=== PATIENT | female | born 1935 | race Caucasian/White ===

== ENCOUNTER 2017-06-29 04:11 | Emergency (ER) | payer MEDICARE ==
[~2017-06-29] VITALS: Ht 162.6 cm; Wt 61.0 kg
[~2017-06-29 04:11] MED LIST: DORZ1SOL2 OU; ESTR2TAB PO; LATA.005%O OU; LISI-360 PO; MAG-500T PO; METH10TA PO
[2017-06-29] MEDS ORDERED: SODIUM CHLOR 0.9% 1000 ML INJ 1,000 ML IV SCH ×2 (04:17→06:00)
[2017-06-29 04:30] VITALS: BP 135/70; PULSE 94; RESP 16; TEMP 97.8; O2SAT 98
[2017-06-29] MEDS ORDERED: SODIUM CHLORIDE 0.9% FLUSH 10 ML FLUSH IV FLUSH PRN (04:30)
[2017-06-29 04:35] VITALS: O2SAT 98
--- NOTE | 2017-06-29 04:45 | PD ---
HPI Chief Complaint: GI Complaint Time Seen by Provider: 04:39 Travel History International Travel<30 days: No Contact w/Intl Traveler<30days: No Traveled to known affect area: No History of Present Illness HPI The patient is an 81-year-old female who has multiple allergies who complains of dizziness, diarrhea since midnight. She is been treated for urinary tract infection and completed her low last dose of urinary antibiotic, amoxicillin, yesterday. The patient does take as needed hydralazine for blood pressure and took 250 mg tablets tonight because of elevated blood pressure. She denies any blood in the stool. She is slightly nauseated. She also has a bifrontal headache of gradual onset tonight. She denies any fever. She denies any cough. Her abdominal pain is sharp and crampy in as a 10 over 10. Her headache is sharp and is a 10 over 10. The patient has fibromyalgia and takes methadone 10 mg in the morning and 20 at night. She has taken this for several years. PFSH Past Medical History Arthritis: Yes Cancer: No Cardiovascular Problems: Yes Diminished Hearing: Yes Endocrine: No Fibromyalgia: Yes Gastrointestinal Disorders: Yes (LOSS OF APPETITE) Glaucoma: Yes Genitourinary: No Hypertension: Yes Immune Disorder: No Musculoskeletal: Yes (ARTHRITIS IN NECK AND BACK) Neurologic: No Psychiatric: No Reproductive: Yes (HYSTERECTOMY) Respiratory: No Menopausal: Yes Past Surgical History Gynecologic Surgery: Yes (HYSTERECTOMY AND BILATERAL OOPHORECTOMY) Other Surgery: Yes Social History Alcohol Use: No Tobacco Use: No (FORMER) Substance Use: No Allergies-Medications (Allergen,Severity, Reaction): Coded Allergies: acetaminophen (Verified Allergy, Severe, GI UPSET, 06/29/17) doxycycline (Verified Allergy, Severe, Hives, 06/29/17) iodine (Verified Allergy, Severe, Edema, 06/29/17) minocycline (Verified Allergy, Severe, Hives, 06/29/17) potassium iodide (Verified Allergy, Severe, Edema, 06/29/17) povidone-iodine (Verified Allergy, Severe, Edema, 06/29/17) sodium iodide (Verified Allergy, Severe, Edema, 06/29/17) sodium iodide (Verified Allergy, Severe, Edema, 06/29/17) tigecycline (Verified Allergy, Severe, Hives, 06/29/17) aspirin (Verified Allergy, Mild, GI UPSET, 06/29/17) pentoxifylline (Verified Allergy, Unknown, 06/29/17) shellfish derived (Verified Allergy, Unknown, Nausea/Vomiting, 06/29/17) HIVES sulfamethoxazole (Verified Allergy, Unknown, 06/29/17) trimethoprim (Verified Allergy, Unknown, 06/29/17) Reported Meds & Prescriptions Reported Meds & Active Scripts Active K-Tab (Potassium Chloride) 20 Meq Tab 20 Meq PO DAILY Zofran Odt (Ondansetron Odt) 4 Mg Tab 4 Mg SL Q6HR PRN Reported Hydralazine HCl 25 Mg Tablet 50 Mg PO TID Calcium 600 with Vitamin D (Calcium Carbonate-Cholecalciferol) 600-400 mg-Unit Tab 1 Tab PO DAILY Fish Oil 1200 mg ([place]-3 Fatty Acids) 360 Mg-1,200 Mg Cap 1,200 Mg PO DAILY Telmisartan 80 Mg Tab 80 Mg PO DAILY Methadone (Methadone HCl) 10 Mg Tab 10 Mg PO TID Latanoprost Opth Drops (Latanoprost) 0.005% Drops 1 Drop EACH EYE HS Refrigerate until opened. Hydrochlorothiazide 25 Mg Tab 25 Mg PO DAILY Dorzolamide-Timolol Opth Drops 22.3-6.8 Mg/Ml Soln 1 Drop EACH EYE BID Biotin 10 Mg Tab 10 Mg PO DAILY Aspirin 81 Mg Chew 81 Mg CHEW DAILY Review of Systems Except as stated in HPI: all other systems reviewed are Neg Physical Exam Narrative GENERAL: The patient is alert, oriented 3 in moderate apparent distress with her abdominal pain and headache. Her vital signs show pulse of 94 but are otherwise normal. SKIN: Focused skin assessment warm/dry. HEAD: Atraumatic. Normocephalic. EYES: Pupils equal and round. No scleral icterus. No injection or drainage. ENT: No nasal bleeding or discharge. Mucous membranes pink and moist. NECK: Trachea midline. No JVD. There is no meningismus present. CARDIOVASCULAR: Regular rate and rhythm. No murmur appreciated. RESPIRATORY: No accessory muscle use. Clear to auscultation. Breath sounds equal bilaterally. GASTROINTESTINAL: Abdomen soft, with tenderness to direct palpation of the midline epigastrium, nondistended. Hepatic and splenic margins not palpable. No guarding or rebound is present. MUSCULOSKELETAL: No obvious deformities. No clubbing. No cyanosis. No edema. NEUROLOGICAL: Awake and alert. No obvious cranial nerve deficits. Motor grossly within normal limits. Normal speech. PSYCHIATRIC: Appropriate mood and affect; insight and judgment normal. Data Data Last Documented VS Vital Signs Date Time Temp Pulse Resp B/P (MAP) Pulse Ox O2 Delivery O2 Flow Rate FiO2 06/29/17 05:45 98 18 119/62 (81) 98 Room Air 06/29/17 04:30 97.8 Orders Orders Complete Blood Count With Diff (06/29/17 04:17) Comprehensive Metabolic Panel (06/29/17 04:17) Lipase (06/29/17 04:17) Urinalysis - C+S If Indicated (06/29/17 04:17) Iv Access Insert/Monitor (06/29/17 04:17) Ecg Monitoring (06/29/17 04:17) Oximetry (06/29/17 04:17) Sodium Chlor 0.9% 1000 Ml Inj (Ns 1000 M (06/29/17 04:17) Sodium Chloride 0.9% Flush (Ns Flush) (06/29/17 04:30) Ct Brain W/O Iv Contrast(Rout) (06/29/17 04:45) Magnesium (Mg) (06/29/17 04:17) Ct Abd/Pel W/O Iv Contrast (06/29/17 04:55) Potassium Chloride (Kcl) (06/29/17 05:30) Sodium Chlor 0.9% 1000 Ml Inj (Ns 1000 M (06/29/17 06:00) Ondansetron Inj (Zofran Inj) (06/29/17 06:15) Dicyclomine Inj (Bentyl Inj) (06/29/17 06:30) C Diff Toxin Pcr (06/29/17 06:19) Enteric Path (Stool) (06/29/17 06:19) Labs Laboratory Tests Test 06/29/17 04:45 06/29/17 05:50 White Blood Count 8.8 TH/MM3 Red Blood Count 4.04 MIL/MM3 Hemoglobin 11.6 GM/DL Hematocrit 36.0 % Mean Corpuscular Volume 89.2 FL Mean Corpuscular Hemoglobin 28.8 PG Mean Corpuscular Hemoglobin Concent 32.3 % Red Cell Distribution Width 12.7 % Platelet Count 299 TH/MM3 Mean Platelet Volume 7.4 FL Neutrophils (%) (Auto) 72.6 % Lymphocytes (%) (Auto) 15.1 % Monocytes (%) (Auto) 8.2 % Eosinophils (%) (Auto) 3.3 % Basophils (%) (Auto) 0.8 % Neutrophils # (Auto) 6.4 TH/MM3 Lymphocytes # (Auto) 1.3 TH/MM3 Monocytes # (Auto) 0.7 TH/MM3 Eosinophils # (Auto) 0.3 TH/MM3 Basophils # (Auto) 0.1 TH/MM3 CBC Comment DIFF FINAL Differential Comment Blood Urea Nitrogen 13 MG/DL Creatinine 0.79 MG/DL Random Glucose 127 MG/DL Total Protein 7.2 GM/DL Albumin 3.5 GM/DL Calcium Level 9.2 MG/DL Magnesium Level 1.8 MG/DL Alkaline Phosphatase 54 U/L Aspartate Amino Transf (AST/SGOT) 23 U/L Alanine Aminotransferase (ALT/SGPT) 15 U/L Total Bilirubin 0.4 MG/DL Sodium Level 132 MEQ/L Potassium Level 3.0 MEQ/L Chloride Level 96 MEQ/L Carbon Dioxide Level 30.7 MEQ/L Anion Gap 5 MEQ/L Estimat Glomerular Filtration Rate 70 ML/MIN Lipase 213 U/L Urine Color YELLOW Urine Turbidity CLOUDY Urine pH 8.5 Urine Specific [place] 1.009 Urine Protein NEG mg/dL Urine Glucose (UA) NEG mg/dL Urine Ketones NEG mg/dL Urine Occult Blood NEG Urine Nitrite NEG Urine Bilirubin NEG Urine Leukocyte Esterase NEG Urine RBC 0-2 /hpf Urine WBC 3-5 /hpf Urine Squamous Epithelial Cells > 8 /hpf Urine Amorphous Sediment LARGE Urine Bacteria NONE /hpf Microscopic Urinalysis Comment CULT NOT INDICATED MDM Medical Decision Making Medical Screen Exam Complete: Yes Emergency Medical Condition: Yes Medical Record Reviewed: Yes Differential Diagnosis Ischemic bowel, cholecystitis, colitis, pyelonephritis, gastritis, dehydration, electrolyte disorder, pancreatitis, clostridium difficile, abdominal pain etiology undetermined Narrative Course At approximately 0620 the patient had a fairly well-formed stool. She still feels slightly nauseated. Physician Communication Physician Communication Discussed the patient with Dr. Avel arndt, he felt that we did not have enough to justify admission. Diagnosis Primary Impression: Abdominal pain of unknown etiology Additional Instructions: As we discussed, follow-up with Dr. Justice aLl on Saturday if possible for reevaluation. Zofran is every 6 hours 1 tablet as needed for nausea. Make sure that you've increase your liquid intake to stay well-hydrated. Med/Other Pt SpecificInfo: Prescription(s) given Scripts Potassium Chloride ER (K-Tab) 20 Meq Tab 20 MEQ PO DAILY for Electrolyte Replacement, #30 TAB 0 Refills Prov: Elvin Darling MD 06/29/17 Ondansetron Odt (Zofran Odt) 4 Mg Tab 4 MG SL Q6HR Y for Nausea/Vomiting, #30 TAB 0 Refills Prov: Elvin Darling MD 06/29/17 Disposition: 01 DISCHARGE HOME Condition: Stable Elvin Darling MD Jun 29, 2017 04:45
[2017-06-29] MEDS ORDERED: TELM1TAB2 PO (04:54)
[2017-06-29] MEDS ORDERED: BIOT10TA PO (04:54)
[2017-06-29] MEDS ORDERED: METH10TA PO (04:54)
[2017-06-29] MEDS ORDERED: LATA0.002 EACH EYE (04:54)
[2017-06-29] MEDS ORDERED: CALC1TAB87 PO (04:54)
[2017-06-29] MEDS ORDERED: DORZ2SOL15 EACH EYE (04:54)
[2017-06-29] MEDS ORDERED: HYDR25TA5 PO (04:54)
[2017-06-29] MEDS ORDERED: ASPI-516 CHEW (04:54)
[2017-06-29] MEDS ORDERED: FISH1200 PO (04:54)
[2017-06-29] MEDS ORDERED: HYDR-3799 PO (04:54)
[2017-06-29 04:56] LABS: AUTOMATED NEUTROPHIL # 6.4 TH/MM3 (1.8-7.7); BASOPHIL # 0.1 TH/MM3 (0-0.2); BASOPHIL % 0.8 % (0.0-2.0); EOSINOPHIL # 0.3 TH/MM3 (0-0.4); EOSINOPHIL % 3.3 % (0.0-4.0); HEMOGLOBIN 11.6 GM/DL (11.6-15.3); LYMPH % 15.1 % (9.0-44.0); LYMPHOCYTE # 1.3 TH/MM3 (1.0-4.8); MEAN CELL VOLUME 89.2 FL (80.0-100.0); MEAN CORPUSCULAR HEMOGLOBIN 28.8 PG (27.0-34.0); MEAN CORPUSCULAR HGB CONC 32.3 % (32.0-36.0); MEAN PLATELET VOLUME 7.4 FL (7.0-11.0); MONO % 8.2 % (0.0-8.0); MONOCYTE # 0.7 TH/MM3 (0-0.9); NEUT % 72.6 % (16.0-70.0); PLATELET COUNT 299 TH/MM3 (150-450); RED BLOOD COUNT 4.04 MIL/MM3 (4.00-5.30); RED CELL DISTRIBUTION WIDTH 12.7 % (11.6-17.2); WHITE BLOOD COUNT 8.8 TH/MM3 (4.0-11.0)
[2017-06-29 05:03] LABS: CHLORIDE 96 MEQ/L (98-107); SODIUM (NA) 132 MEQ/L (136-145)
[2017-06-29 05:07] LABS: ALBUMIN 3.5 GM/DL (3.4-5.0); BICARBONATE 30.7 MEQ/L (21.0-32.0); BLOOD UREA NITROGEN 13 MG/DL (7-18); CALCIUM 9.2 MG/DL (8.5-10.1); GLUCOSE,RANDOM 127 MG/DL (74-106); MAGNESIUM 1.8 MG/DL (1.5-2.5)
[2017-06-29 05:10] LABS: ALT (GPT) 15 U/L (10-53); AST (GOT) 23 U/L (15-37); CREATININE 0.79 MG/DL (0.50-1.00); GLOMERULAR FILTRATION RATE 70 ML/MIN (>89)
[2017-06-29 05:12] LABS: TOTAL BILIRUBIN ADULT 0.4 MG/DL (0.2-1.0); TOTAL PROTEIN 7.2 GM/DL (6.4-8.2)
[2017-06-29 05:13] LABS: ALKALINE PHOSPHATASE 54 U/L (45-117)
[2017-06-29] MEDS ORDERED: POTASSIUM CHLORIDE 20 MEQ CONTROLLED RELEASE TAB PO ONE (05:30)
--- NOTE | 2017-06-29 05:41 | RADRPT ---
EXAM DATE/TIME: 06/29/2017 05:04 [facility] COMPARISON: CT BRAIN W/O CONTRAST, September 09, 2013, 14:07. INDICATIONS : Cephalgia, dizziness. RADIATION DOSE: 61.51 CTDIvol (mGy) MEDICAL HISTORY : Hypertension. Fibromyalgia. SURGICAL HISTORY : Abdominal aortic aneurysm repair. ENCOUNTER: Initial ACUITY: 1 day PAIN SCALE: 10/10 LOCATION: cranial TECHNIQUE: Multiple contiguous axial images were obtained of the head. Using automated exposure control and adj ustment of the mA and/or kV according to patient size, radiation dose was kept as low as reasonably a chievable to obtain optimal diagnostic quality images. DICOM format image data is available electro nically for review and comparison. FINDINGS: CEREBRUM: The ventricles are normal for age. No evidence of midline shift, mass lesion, hemorrhage or acute in farction. No extra-axial fluid collections are seen. POSTERIOR FOSSA: The cerebellum and brainstem are intact. The 4th ventricle is midline. The cerebellopontine angle i s unremarkable. EXTRACRANIAL: The visualized portion of the orbits is intact. SKULL: The calvaria is intact. No evidence of skull fracture. CONCLUSION: 1. No acute intracranial abnormalities. Johnnie Siddiqi MD on June 29, 2017 at 5:38 Board Certified Radiologist. This report was verified electronically.
--- NOTE | 2017-06-29 05:44 | RADRPT ---
EXAM DATE/TIME: 06/29/2017 05:07 [facility] COMPARISON: No previous studies available for comparison. INDICATIONS : Abdominal pain with diarrhea. ORAL CONTRAST: No oral contrast ingested. RADIATION DOSE: 8.53 CTDIvol (mGy) MEDICAL HISTORY : Hypertension. Fibromyalgia. SURGICAL HISTORY : Hysterectomy. Abdominal aortic aneurysm repair. ENCOUNTER: Initial ACUITY: 1 day PAIN SCALE: 10/10 LOCATION: Abdomen. TECHNIQUE: Volumetric scanning of the abdomen and pelvis was performed. Using automated exposure control and ad justment of the mA and/or kV according to patient size, radiation dose was kept as low as reasonably achievable to obtain optimal diagnostic quality images. DICOM format image data is available electro nically for review and comparison. FINDINGS: Lung bases demonstrate minimal linear atelectasis or scarring. No acute findings in the liver, spleen , adrenals, kidneys or pancreas. No calcified gallstones. Previous graft placement distal abdominal a anamaria and proximal iliac arteries. Colonic diverticulosis without diverticulitis. No obstruction, free fluid or free air. CONCLUSION: 1. No acute findings. Specifically no obstruction or free air. 2. Colonic diverticulosis without diverticulitis. 3. Stent graft distal aorta and common iliac arteries. Johnnie Siddiqi MD on June 29, 2017 at 5:40 Board Certified Radiologist. This report was verified electronically.
[2017-06-29 05:45] VITALS: BP 119/62; PULSE 98; RESP 18; O2SAT 98
[2017-06-29 05:56] LABS: BILIRUBIN, URINE NEG (NEG); BLOOD, URINE NEG (NEG); GLUCOSE,URINE NEG (NEG); KETONE, URINE NEG (NEG); NITRITE,URINE NEG (NEG); PH, URINE 8.5 (5.0-8.5); URINE LEUKOCYTE ESTERASE NEG (NEG)
[2017-06-29 05:57] LABS: URINE COLOR YELLOW (YELLW/STRAW)
[2017-06-29 06:00] LABS: AMORPHOUS SEDIMENT, URINE LARGE; RBC, URINE 0-2 /hpf (0-3); SQUAMOUS EPITHELIAL CELL URINE > 8 /hpf (0-5)
[2017-06-29] MEDS ORDERED: ONDANSETRON HCL 4 MG/2 ML VIAL IV ONE (06:15)
[2017-06-29] MEDS ORDERED: ZOFR4TAB3 SL (06:22)
[2017-06-29] MEDS ORDERED: POTA1TAB4 PO (06:23)
[2017-06-29] MEDS ORDERED: DICYCLOMINE HCL 20 MG/2 ML VIAL IM ONE (06:30)
== END 2017-06-29 07:07 | disposition home or self-care (01) ==
LOC: PHED 04:11
DX: R10.9 Unspecified abdominal pain (principal); M79.7 Fibromyalgia; I10 Essential (primary) hypertension; Z88.8 Allergy status to other drugs, medicaments and biological substances; Z88.2 Allergy status to sulfonamides; Z88.6 Allergy status to analgesic agent; Z91.013 Allergy to seafood
CPT/HCPCS: 70450; 74176; 80053; 81001; 83690; 83735; 85025; 87493; 87506; 96361; 96374; 99284; J2405; J7030

== ENCOUNTER 2017-07-01 02:59 | Emergency (ER) | payer MEDICARE ==
[~2017-07-01] VITALS: Ht 162.6 cm; Wt 57.3 kg
[~2017-07-01 02:59] MED LIST changes: +ASPI-516 CHEW; +BIOT10TA PO; +CALC1TAB87 PO; -DORZ1SOL2 OU; +DORZ2SOL15 EACH EYE; -ESTR2TAB PO; +FISH1200 PO; +HYDR-3799 PO; +HYDR25TA5 PO; -LATA.005%O OU; +LATA0.002 EACH EYE; -LISI-360 PO; -MAG-500T PO; +POTA1TAB4 PO; +TELM1TAB2 PO; +ZOFR4TAB3 SL
[2017-07-01 03:01] VITALS: BP 146/70; PULSE 106; RESP 16; TEMP 97.5; O2SAT 96
[2017-07-01 03:42] VITALS: BP 129/72; PULSE 91; RESP 18; O2SAT 95
[2017-07-01] MEDS ORDERED: SODIUM CHLORIDE 0.9% FLUSH 10 ML FLUSH IV FLUSH PRN (04:15)
[2017-07-01] MEDS ORDERED: MORPHINE SULFATE 2 MG/ML INJ IV PUSH ONE (04:15)
[2017-07-01] MEDS ORDERED: ONDANSETRON HCL 4 MG/2 ML VIAL IVP ONE (04:15)
[2017-07-01] MEDS ORDERED: SODIUM CHLORID 0.9% 500 ML INJ 500 ML IV ONE (04:15)
[2017-07-01 04:30] LABS: BASOPHIL % 0.8 % (0.0-2.0); EOSINOPHIL # 0.1 TH/MM3 (0-0.4); EOSINOPHIL % 2.4 % (0.0-4.0); HEMATOCRIT 32.2 % (35.0-46.0); LYMPH % 24.8 % (9.0-44.0); LYMPHOCYTE # 1.5 TH/MM3 (1.0-4.8); MEAN CELL VOLUME 89.1 FL (80.0-100.0); MEAN CORPUSCULAR HEMOGLOBIN 30.5 PG (27.0-34.0); MEAN CORPUSCULAR HGB CONC 34.2 % (32.0-36.0); MEAN PLATELET VOLUME 7.9 FL (7.0-11.0); MONO % 8.5 % (0.0-8.0); MONOCYTE # 0.5 TH/MM3 (0-0.9); NEUT % 63.5 % (16.0-70.0); PLATELET COUNT 256 TH/MM3 (150-450); RED BLOOD COUNT 3.61 MIL/MM3 (4.00-5.30); RED CELL DISTRIBUTION WIDTH 13.1 % (11.6-17.2); WHITE BLOOD COUNT 6.1 TH/MM3 (4.0-11.0)
[2017-07-01 04:31] LABS: BILIRUBIN, URINE NEG (NEG); BLOOD, URINE NEG (NEG); GLUCOSE,URINE NEG (NEG); KETONE, URINE NEG (NEG); NITRITE,URINE NEG (NEG); URINE LEUKOCYTE ESTERASE NEG (NEG)
--- NOTE | 2017-07-01 04:33 | RADRPT ---
EXAM DATE/TIME: 07/01/2017 04:12 [place] Corrected on: July 01, 2017; [facility] COMPARISON: No previous studies available for comparison. INDICATIONS : Abdominal pain. MEDICAL HISTORY : Hypertension. SURGICAL HISTORY : Abdominal aortic aneurysm repair. Hysterectomy. ENCOUNTER: Initial ACUITY: 1 day PAIN SCORE: 5/10 LOCATION: abdomen, all quadrants. FINDINGS: Supine and upright views of the abdomen were performed. The abdominal bowel gas pattern is normal. No air fluid levels are seen. No abnormal masses, calcifications, or organomegaly is seen. The visu alized lower lungs are clear. No evidence of free intraperitoneal gas. The osseous structures are u nremarkable. CONCLUSION: Nonobstructive bowel gas pattern. Chapin Mccartney MD on July 01, 2017 at 4:30 Board Certified Radiologist. This report was verified electronically. Chapin Mccartney MD on July 01, 2017 at 5:14 Board Certified Radiologist. This report was verified electronically.
[2017-07-01 04:35] LABS: CHLORIDE 97 MEQ/L (98-107); SODIUM (NA) 134 MEQ/L (136-145)
--- NOTE | 2017-07-01 04:35 | RADRPT ---
EXAM DATE/TIME: 07/01/2017 04:21 [facility] COMPARISON: CT BRAIN W/O CONTRAST, June 29, 2017, 5:04. INDICATIONS : Cephalgia. Left side weakness. RADIATION DOSE: 59.45 CTDIvol (mGy) MEDICAL HISTORY : Hypertension. SURGICAL HISTORY : None. ENCOUNTER: Initial ACUITY: 2 days PAIN SCALE: 10/10 LOCATION: cranial TECHNIQUE: Multiple contiguous axial images were obtained of the head. Using automated exposure control and adj ustment of the mA and/or kV according to patient size, radiation dose was kept as low as reasonably a chievable to obtain optimal diagnostic quality images. DICOM format image data is available electro nically for review and comparison. FINDINGS: There is mild volume loss with no signs of acute infarct, hemorrhage or mass. Osseous structures are intact. CONCLUSION: No significant change has occurred. Chapin Mccartney MD on July 01, 2017 at 4:32 Board Certified Radiologist. This report was verified electronically.
[2017-07-01 04:38] LABS: ALBUMIN 3.4 GM/DL (3.4-5.0); BICARBONATE 28.8 MEQ/L (21.0-32.0); CALCIUM 9.2 MG/DL (8.5-10.1); GLUCOSE,RANDOM 124 MG/DL (74-106)
[2017-07-01 04:39] LABS: URINE COLOR YELLOW (YELLW/STRAW)
[2017-07-01 04:39] LABS: BLOOD UREA NITROGEN 9 MG/DL (7-18)
[2017-07-01 04:41] LABS: MUCUS URINE OCC /lpf (OCC); SQUAMOUS EPITHELIAL CELL URINE 0-5 /hpf (0-5)
[2017-07-01 04:41] LABS: ALT (GPT) 16 U/L (10-53); AST (GOT) 25 U/L (15-37); CREATININE 0.71 MG/DL (0.50-1.00); GLOMERULAR FILTRATION RATE 79 ML/MIN (>89)
[2017-07-01 04:43] LABS: RBC, URINE 0-3 /hpf (0-3)
[2017-07-01 04:43] LABS: TOTAL BILIRUBIN ADULT 0.4 MG/DL (0.2-1.0); TOTAL PROTEIN 6.9 GM/DL (6.4-8.2)
[2017-07-01 04:44] LABS: ALKALINE PHOSPHATASE 47 U/L (45-117)
--- NOTE | 2017-07-01 04:52 | PD ---
HPI Chief Complaint: Numbness/Tingling Time Seen by Provider: 04:05 Travel History International Travel<30 days: No Contact w/Intl Traveler<30days: No Traveled to known affect area: No History of Present Illness HPI 81-year-old female presents to the emergency department by private transportation for evaluation of abdominal pain and head pain generalized weakness and hand tingling. Patient has not felt well for several days was recently seen in the emergency department and diagnosed with C. difficile colitis and prescribed oral antibiotic. Patient did not have antibiotic filled as the pharmacy that they typically go to was closed in the [facility] pharmacy coloscopy medication was too expensive. Patient yesterday felt well but went to bed and upon awakening again felt poorly and decided to come to the emergency room for further evaluation. No fever no chills reports that diarrhea has resolved. No dysuria frequency urgency or flank pain. Patient rates abdominal pain is moderate to severe and headache is moderate to severe. Patient's had no visual disturbance no change in speech no confusion or balance disturbance no upper or lower cavity weakness and no arm leg numbness tingling or weakness and previous tingling sensation in her hands has resolved. No recent neck injury or fall. Patient has not yet started new medication and has not had additional new medication for adverse reaction symptoms. Past history is significant for hypertension chronic pain syndrome fibromyalgia previous aortic stent graft placement. [facility] Past Medical History Narrative Medical Stent graft distal aorta fibromyalgia glaucoma arthritis hypertension hysterectomy no tobacco use; nursing notes reviewed Hx Anticoagulant Therapy: Yes Arthritis: Yes Cancer: No Cardiovascular Problems: Yes Diminished Hearing: Yes Endocrine: No Fibromyalgia: Yes Gastrointestinal Disorders: Yes (LOSS OF APPETITE) Glaucoma: Yes Genitourinary: No Hypertension: Yes Immune Disorder: No Musculoskeletal: Yes (ARTHRITIS IN NECK AND BACK) Neurologic: No Psychiatric: No Reproductive: Yes (HYSTERECTOMY) Respiratory: No ?: Not Menopausal: Yes Past Surgical History Gynecologic Surgery: Yes (HYSTERECTOMY AND BILATERAL OOPHORECTOMY) Hysterectomy: Yes Other Surgery: Yes Social History Alcohol Use: No Tobacco Use: No (FORMER) Substance Use: No Allergies-Medications (Allergen,Severity, Reaction): Coded Allergies: acetaminophen (Verified Allergy, Severe, GI UPSET, 07/01/17) doxycycline (Verified Allergy, Severe, Hives, 07/01/17) iodine (Verified Allergy, Severe, Edema, 07/01/17) minocycline (Verified Allergy, Severe, Hives, 07/01/17) potassium iodide (Verified Allergy, Severe, Edema, 07/01/17) povidone-iodine (Verified Allergy, Severe, Edema, 07/01/17) sodium iodide (Verified Allergy, Severe, Edema, 07/01/17) sodium iodide (Verified Allergy, Severe, Edema, 07/01/17) tigecycline (Verified Allergy, Severe, Hives, 07/01/17) aspirin (Verified Allergy, Mild, GI UPSET, 07/01/17) pentoxifylline (Verified Allergy, Unknown, 07/01/17) shellfish derived (Verified Allergy, Unknown, Nausea/Vomiting, 07/01/17) HIVES sulfamethoxazole (Verified Allergy, Unknown, 07/01/17) trimethoprim (Verified Allergy, Unknown, 07/01/17) Reported Meds & Prescriptions Reported Meds & Active Scripts Active K-Tab (Potassium Chloride) 20 Meq Tab 20 Meq PO DAILY Zofran Odt (Ondansetron Odt) 4 Mg Tab 4 Mg SL Q6HR PRN Reported Hydralazine HCl 25 Mg Tablet 50 Mg PO TID Calcium 600 with Vitamin D (Calcium Carbonate-Cholecalciferol) 600-400 mg-Unit Tab 1 Tab PO DAILY Fish Oil 1200 mg ([place]-3 Fatty Acids) 360 Mg-1,200 Mg Cap 1,200 Mg PO DAILY Telmisartan 80 Mg Tab 80 Mg PO DAILY Methadone (Methadone HCl) 10 Mg Tab 10 Mg PO TID Latanoprost Opth Drops (Latanoprost) 0.005% Drops 1 Drop EACH EYE HS Refrigerate until opened. Hydrochlorothiazide 25 Mg Tab 25 Mg PO DAILY Dorzolamide-Timolol Opth Drops 22.3-6.8 Mg/Ml Soln 1 Drop EACH EYE BID Biotin 10 Mg Tab 10 Mg PO DAILY Aspirin 81 Mg Chew 81 Mg CHEW DAILY Review of Systems Except as stated in HPI: all other systems reviewed are Neg General / Constitutional: No: Fever, Chills HENT: No: Congestion Cardiovascular: No: Chest Pain or Discomfort Respiratory: No: Shortness of Breath Gastrointestinal: Positive: Nausea, Abdominal Pain, No: Diarrhea Genitourinary: No: Dysuria, Flank Pain Musculoskeletal: No: Myalgias, Arthralgias Skin: No Rash Neurologic: Positive: Weakness, Paresthesia (Generalized transient hand), No: Dizziness, Syncope, Focal Abnormalities, Coordination Problem Psychiatric: Positive: Anxiety Hematologic/Lymphatic: No: Lymph Node Enlargement Physical Exam Narrative GENERAL: Well-developed well-nourished female in no acute distress or respiratory distress; GCS 15 SKIN: Warm and dry. HEAD: Atraumatic. Normocephalic. EYES: Pupils equal and round. No scleral icterus. No injection or drainage. ENT: No nasal bleeding or discharge. Mucous membranes pink and moist. NECK: Trachea midline. No JVD. CARDIOVASCULAR: Regular rate and rhythm. RESPIRATORY: No accessory muscle use. Clear to auscultation. Breath sounds equal bilaterally. GASTROINTESTINAL: Abdomen soft, non-tender, nondistended. Hepatic and splenic margins not palpable. MUSCULOSKELETAL: Extremities without clubbing, cyanosis, or edema. No obvious deformities. NEUROLOGICAL: Awake and alert. No obvious cranial nerve deficits. Motor grossly within normal limits. Five out of 5 muscle strength in the arms and legs. No limb ataxia. No pronator drift. Sensory exam intact. DTRs 2+ and equal bilaterally. Normal speech. PSYCHIATRIC: Appropriate mood and affect; insight and judgment normal. Data Data Last Documented VS Vital Signs Date Time Temp Pulse Resp B/P (MAP) Pulse Ox O2 Delivery O2 Flow Rate FiO2 07/01/17 03:42 91 18 129/72 (91) 95 Room Air 07/01/17 03:01 97.5 Orders Orders Complete Blood Count With Diff (07/01/17 04:05) Comprehensive Metabolic Panel (07/01/17 04:05) Lipase (07/01/17 04:05) Lactic Acid (07/01/17 04:05) Urinalysis - C+S If Indicated (07/01/17 04:05) Abdomen, Flat & Upright (07/01/17 ) Iv Access Insert/Monitor (07/01/17 04:05) Ecg Monitoring (07/01/17 04:05) Oximetry (07/01/17 04:05) Ondansetron Inj (Zofran Inj) (07/01/17 04:15) Sodium Chloride 0.9% Flush (Ns Flush) (07/01/17 04:15) Electrocardiogram (07/01/17 04:05) Morphine Inj (Morphine Inj) (07/01/17 04:15) Sodium Chlorid 0.9% 500 Ml Inj (Ns 500 M (07/01/17 04:15) Ct Brain W/O Iv Contrast(Rout) (07/01/17 ) Potassium Chloride (Kcl) (07/01/17 05:00) Ed Discharge Order (07/01/17 05:41) Labs Laboratory Tests Test 07/01/17 03:55 07/01/17 04:05 White Blood Count 6.1 TH/MM3 Red Blood Count 3.61 MIL/MM3 Hemoglobin 11.0 GM/DL Hematocrit 32.2 % Mean Corpuscular Volume 89.1 FL Mean Corpuscular Hemoglobin 30.5 PG Mean Corpuscular Hemoglobin Concent 34.2 % Red Cell Distribution Width 13.1 % Platelet Count 256 TH/MM3 Mean Platelet Volume 7.9 FL Neutrophils (%) (Auto) 63.5 % Lymphocytes (%) (Auto) 24.8 % Monocytes (%) (Auto) 8.5 % Eosinophils (%) (Auto) 2.4 % Basophils (%) (Auto) 0.8 % Neutrophils # (Auto) 4.0 TH/MM3 Lymphocytes # (Auto) 1.5 TH/MM3 Monocytes # (Auto) 0.5 TH/MM3 Eosinophils # (Auto) 0.1 TH/MM3 Basophils # (Auto) 0.0 TH/MM3 CBC Comment DIFF FINAL Differential Comment Blood Urea Nitrogen 9 MG/DL Creatinine 0.71 MG/DL Random Glucose 124 MG/DL Total Protein 6.9 GM/DL Albumin 3.4 GM/DL Calcium Level 9.2 MG/DL Alkaline Phosphatase 47 U/L Aspartate Amino Transf (AST/SGOT) 25 U/L Alanine Aminotransferase (ALT/SGPT) 16 U/L Total Bilirubin 0.4 MG/DL Sodium Level 134 MEQ/L Potassium Level 3.0 MEQ/L Chloride Level 97 MEQ/L Carbon Dioxide Level 28.8 MEQ/L Anion Gap 8 MEQ/L Estimat Glomerular Filtration Rate 79 ML/MIN Lactic Acid Level 0.9 mmol/L Lipase 153 U/L Urine Color YELLOW Urine Turbidity CLEAR Urine pH 8.0 Urine Specific [place] 1.007 Urine Protein NEG mg/dL Urine Glucose (UA) NEG mg/dL Urine Ketones NEG mg/dL Urine Occult Blood NEG Urine Nitrite NEG Urine Bilirubin NEG Urine Leukocyte Esterase NEG Urine RBC 0-3 /hpf Urine Squamous Epithelial Cells 0-5 /hpf Urine Mucus OCC /lpf Microscopic Urinalysis Comment CULT NOT INDICATED MDM Medical Decision Making Medical Screen Exam Complete: Yes Emergency Medical Condition: Yes Medical Record Reviewed: Yes Interpretation(s) Normal sinus rhythm rate 82 left ventricular conduction delay no acute ST elevation or injury pattern CBC & BMP Diagram 07/01/17 03:55 Total Protein 6.9, Albumin 3.4, Calcium Level 9.2, Alkaline Phosphatase 47, Aspartate Amino Transf (AST/SGOT) 25, Alanine Aminotransferase (ALT/SGPT) 16, Total Bilirubin 0.4 Vital Signs Date Time Temp Pulse Resp B/P (MAP) Pulse Ox O2 Delivery O2 Flow Rate FiO2 07/01/17 03:42 91 18 129/72 (91) 95 Room Air 07/01/17 03:12 93 07/01/17 03:01 97.5 106 16 146/70 (95) [address] 07/01/17 0000 Signed Impressions: Service Date/Time: Saturday, July 01, 2017 04:21 - CONCLUSION: No significant change has occurred. Chapin Mccartney MD Abdomen X-Ray 07/01/17 0000 Signed Impressions: Service Date/Time: Saturday, July 01, 2017 04:12 - CONCLUSION: Nonobstructive bowel gas pattern. Chapin Mccartney MD Differential Diagnosis Generalized weakness, sepsis, toxic megacolon, UTI, adverse medication reaction , hyperventilation, TIA, CVA, ACS Narrative Course IV access obtained specimens collected and sent for resulting imaging studies ordered CBC with automated differential values are grossly within normal range metabolic panel is remarkable for hypokalemia otherwise values are grossly within normal range and urinalysis is normal EKG shows no acute injury pattern change CT brain noncontrast reveals no acute process and abdominal flat and upright film revealed no air-fluid levels or obstructive pattern and no subdiaphragmatic free air Patient given Zofran and 2 mg of morphine for complaint of abdominal pain. Patient resting comfortably has received oral potassium replacement as above 03/06 yesterday was given prescription for daily potassium supplementation. Patient is to follow-up with her primary care provider. Patient is to have her antibiotic prescription filled through her pharmacy and start her antibiotic therapy for recent diagnosis of C. difficile as provided by previous managing/ prescribed physician Dr. Darling. Diagnosis Primary Impression: Weakness generalized Additional Impressions: Hypokalemia Abdominal pain Referrals: Primary Care Physician call for appointment Patient Instructions: General Instructions Additional Instructions: Continue current medications as presently prescribed and begin your antibiotic as previously directed Take potassium replacement as prescribed Add potassium containing foods and beverages to dietary intake Return to the emergency department for any concerns or change in condition Follow up with your primary care provider Med/Other Pt SpecificInfo: No Change to Meds Disposition: 01 DISCHARGE HOME Condition: Stable Cassidy Rivera MD Jul 01, 2017 04:52
[2017-07-01] MEDS ORDERED: POTASSIUM CHLORIDE 20 MEQ CONTROLLED RELEASE TAB PO ONE (05:00)
[2017-07-01 06:11] VITALS: BP 118/62
--- NOTE | 2017-07-01 11:00 | EKG ---
Date Performed: 07/01/2017 Time Performed: 04:44:46 PTAGE: 81 years EKG: Sinus rhythm POSSIBLE LEFT ATRIAL ENLARGEMENT POSSIBLE RIGHT VENTRICULAR CONDUCTION DELAY BORDERLINE ECG Compared to PREVIOUS TRACING PREVIOUS TRACIN01/06/2015 07.23 DOCTOR: Serafin Stewart Interpretating Date/Time 07/01/2017 10:58:38
== END 2017-07-01 06:12 | disposition home or self-care (01) ==
LOC: PHED 02:59
DX: R53.1 Weakness (principal); E87.6 Hypokalemia; R10.9 Unspecified abdominal pain; R51 Headache; R94.31 Abnormal electrocardiogram [ECG] [EKG]; I10 Essential (primary) hypertension; G89.4 Chronic pain syndrome; M79.7 Fibromyalgia; H40.9 Unspecified glaucoma; H91.90 Unspecified hearing loss, unspecified ear; Z79.82 Long term (current) use of aspirin; Z87.39 Personal history of other diseases of the musculoskeletal system and connective tissue; Z87.19 Personal history of other diseases of the digestive system
CPT/HCPCS: 70450; 74019; 80053; 81001; 83605; 83690; 85025; 93005; 96361; 96374; 96375; 99285; J2270; J2405; J7040

== ENCOUNTER 2017-07-05 07:50 | Emergency (ER) | payer MEDICARE ==
[~2017-07-05] VITALS: Ht 162.6 cm; Wt 56.3 kg
[2017-07-05 07:56] VITALS: BP 149/68; PULSE 87; RESP 16; TEMP 98.6; O2SAT 97
[2017-07-05 08:10] VITALS: O2SAT 97
[2017-07-05] MEDS ORDERED: ONDANSETRON HCL 4 MG/2 ML VIAL IVP ONE (08:15)
[2017-07-05] MEDS ORDERED: MORPHINE SULFATE 4 MG/ML INJ IV PUSH ONE (08:15)
[2017-07-05] MEDS ORDERED: SODIUM CHLORIDE 0.9% FLUSH 10 ML FLUSH IV FLUSH PRN (08:15)
[2017-07-05] MEDS ORDERED: RANI150T PO (08:16)
[2017-07-05] MEDS ORDERED: VANC125C3 PO (08:17)
--- NOTE | 2017-07-05 08:21 | PD ---
HPI Chief Complaint: Abdominal Pain Time Seen by Provider: 08:11 Travel History International Travel<30 days: No Contact w/Intl Traveler<30days: No Traveled to known affect area: No History of Present Illness HPI 81-year-old female arrives complaining of abdominal cramping. She was seen here just a few days prior and diagnosed with C. difficile colitis. She was discharged with oral vancomycin by Dr. Darling along with potassium chloride prescription. She reports complete compliance with medications. Overnight her abdominal pain worsened. Methadone which she takes for fibromyalgia conferred minimal benefit. The significant other reports the main indication for evaluation today is due to the pain. Yesterday she ate well including mckinley beans, potatoes, Gatorade, white turkey and bananas. No vomiting or diarrhea. PFSH Past Medical History Hx Anticoagulant Therapy: Yes Arthritis: Yes Cancer: No Cardiovascular Problems: Yes Diminished Hearing: Yes Endocrine: No Fibromyalgia: Yes Gastrointestinal Disorders: Yes (LOSS OF APPETITE) Glaucoma: Yes Genitourinary: No Hypertension: Yes Immune Disorder: No Musculoskeletal: Yes (ARTHRITIS IN NECK AND BACK) Neurologic: No Psychiatric: No Reproductive: Yes (HYSTERECTOMY) Respiratory: No ?: Not Menopausal: Yes Past Surgical History Gynecologic Surgery: Yes (HYSTERECTOMY AND BILATERAL OOPHORECTOMY) Hysterectomy: Yes Other Surgery: Yes Social History Alcohol Use: No Tobacco Use: No (FORMER) Substance Use: No Allergies-Medications (Allergen,Severity, Reaction): Coded Allergies: acetaminophen (Verified Allergy, Severe, GI UPSET, 07/05/17) doxycycline (Verified Allergy, Severe, Hives, 07/05/17) iodine (Verified Allergy, Severe, Edema, 07/05/17) minocycline (Verified Allergy, Severe, Hives, 07/05/17) potassium iodide (Verified Allergy, Severe, Edema, 07/05/17) povidone-iodine (Verified Allergy, Severe, Edema, 07/05/17) sodium iodide (Verified Allergy, Severe, Edema, 07/05/17) sodium iodide (Verified Allergy, Severe, Edema, 07/05/17) tigecycline (Verified Allergy, Severe, Hives, 07/05/17) aspirin (Verified Allergy, Mild, GI UPSET, 07/05/17) pentoxifylline (Verified Allergy, Unknown, 07/05/17) shellfish derived (Verified Allergy, Unknown, Nausea/Vomiting, 07/05/17) HIVES sulfamethoxazole (Verified Allergy, Unknown, 07/05/17) trimethoprim (Verified Allergy, Unknown, 07/05/17) Reported Meds & Prescriptions Reported Meds & Active Scripts Active K-Tab (Potassium Chloride) 20 Meq Tab 20 Meq PO DAILY Zofran Odt (Ondansetron Odt) 4 Mg Tab 4 Mg SL Q6HR PRN Reported Vancomycin (Vancomycin HCl) 125 Mg Cap 125 Mg PO QID Ranitidine (Ranitidine HCl) 150 Mg Tab 150 Mg PO BID Hydralazine HCl 25 Mg Tablet 50 Mg PO TID Calcium 600 with Vitamin D (Calcium Carbonate-Cholecalciferol) 600-400 mg-Unit Tab 1 Tab PO DAILY Fish Oil 1200 mg ([place]-3 Fatty Acids) 360 Mg-1,200 Mg Cap 1,200 Mg PO DAILY Telmisartan 80 Mg Tab 80 Mg PO DAILY Methadone (Methadone HCl) 10 Mg Tab 10 Mg PO TID Latanoprost Opth Drops (Latanoprost) 0.005% Drops 1 Drop EACH EYE HS Refrigerate until opened. Hydrochlorothiazide 25 Mg Tab 25 Mg PO DAILY Dorzolamide-Timolol Opth Drops 22.3-6.8 Mg/Ml Soln 1 Drop EACH EYE BID Biotin 10 Mg Tab 10 Mg PO DAILY Aspirin 81 Mg Chew 81 Mg CHEW DAILY Review of Systems Except as stated in HPI: all other systems reviewed are Neg General / Constitutional: No: Fever Physical Exam Narrative GENERAL: 81-year-old female pleasant well-nourished well-developed mild distress secondary to pain and/or anxiety Vital Signs Date Time Temp Pulse Resp B/P (MAP) Pulse Ox O2 Delivery O2 Flow Rate FiO2 07/05/17 09:40 96 18 154/68 (96) 96 Room Air 07/05/17 08:50 18 07/05/17 08:10 97 Room Air 07/05/17 07:56 98.6 87 16 149/68 (95) 97 SKIN: Warm and dry. HEAD: Atraumatic. Normocephalic. EYES: Pupils equal and round. No scleral icterus. No injection or drainage. ENT: No nasal bleeding or discharge. Mucous membranes pink and moist. NECK: Trachea midline. No JVD. CARDIOVASCULAR: Regular rate and rhythm. RESPIRATORY: No accessory muscle use. Clear to auscultation. Breath sounds equal bilaterally. GASTROINTESTINAL: Soft. No focus of tenderness. MUSCULOSKELETAL: Extremities without clubbing, cyanosis, or edema. No obvious deformities. NEUROLOGICAL: Awake and alert. No obvious cranial nerve deficits. Motor grossly within normal limits. Five out of 5 muscle strength in the arms and legs. Normal speech. PSYCHIATRIC: Appropriate mood and affect; insight and judgment normal. Data Data Last Documented VS Vital Signs Date Time Temp Pulse Resp B/P (MAP) Pulse Ox O2 Delivery O2 Flow Rate FiO2 07/05/17 09:40 96 18 154/68 (96) 96 Room Air 07/05/17 07:56 98.6 Vital signs reviewed Orders Orders Complete Blood Count With Diff (07/05/17 08:11) Comprehensive Metabolic Panel (07/05/17 08:11) Lipase (07/05/17 08:11) Lactic Acid (07/05/17 08:11) Urinalysis - C+S If Indicated (07/05/17 08:11) Iv Access Insert/Monitor (07/05/17 08:11) Ecg Monitoring (07/05/17 08:11) Oximetry (07/05/17 08:11) Morphine Inj (Morphine Inj) (07/05/17 08:15) Ondansetron Inj (Zofran Inj) (07/05/17 08:15) Sodium Chloride 0.9% Flush (Ns Flush) (07/05/17 08:15) Labs Laboratory Tests Test 07/05/17 08:26 07/05/17 10:00 White Blood Count 6.0 TH/MM3 Red Blood Count 3.94 MIL/MM3 Hemoglobin 11.7 GM/DL Hematocrit 35.0 % Mean Corpuscular Volume 88.8 FL Mean Corpuscular Hemoglobin 29.7 PG Mean Corpuscular Hemoglobin Concent 33.4 % Red Cell Distribution Width 12.8 % Platelet Count 343 TH/MM3 Mean Platelet Volume 7.4 FL Neutrophils (%) (Auto) 68.2 % Lymphocytes (%) (Auto) 21.0 % Monocytes (%) (Auto) 7.9 % Eosinophils (%) (Auto) 2.2 % Basophils (%) (Auto) 0.7 % Neutrophils # (Auto) 4.1 TH/MM3 Lymphocytes # (Auto) 1.3 TH/MM3 Monocytes # (Auto) 0.5 TH/MM3 Eosinophils # (Auto) 0.1 TH/MM3 Basophils # (Auto) 0.0 TH/MM3 CBC Comment DIFF FINAL Differential Comment Blood Urea Nitrogen 8 MG/DL Creatinine 0.77 MG/DL Random Glucose 127 MG/DL Total Protein 7.2 GM/DL Albumin 3.6 GM/DL Calcium Level 9.4 MG/DL Alkaline Phosphatase 58 U/L Aspartate Amino Transf (AST/SGOT) 18 U/L Alanine Aminotransferase (ALT/SGPT) 19 U/L Total Bilirubin 0.5 MG/DL Sodium Level 134 MEQ/L Potassium Level 3.3 MEQ/L Chloride Level 98 MEQ/L Carbon Dioxide Level 29.6 MEQ/L Anion Gap 6 MEQ/L Estimat Glomerular Filtration Rate 72 ML/MIN Lactic Acid Level 1.0 mmol/L Lipase 183 U/L Urine Collection Type CLEAN CATCH Urine Color STRAW Urine Turbidity CLEAR Urine pH 8.0 Urine Specific [place] 1.009 Urine Protein NEG mg/dL Urine Glucose (UA) NEG mg/dL Urine Ketones NEG mg/dL Urine Occult Blood NEG Urine Nitrite NEG Urine Bilirubin NEG Urine Leukocyte Esterase NEG Urine RBC 0-3 /hpf Urine Squamous Epithelial Cells 0-5 /hpf Urine Amorphous Sediment FEW Microscopic Urinalysis Comment CULT NOT INDICATED Urine Collection Time 1000 MDM Medical Decision Making Medical Screen Exam Complete: Yes Emergency Medical Condition: Yes Medical Record Reviewed: Yes Differential Diagnosis Constipation, Gastritis, Acute Cholecystitis, Biliary Colic, Pancreatitis, CHAMPION , Hepatitis, Bowel Obstruction, Cystitis, Mesenteric Ischemia, AAA, Appendicitis , Renal Stone/Hydronephrosis, GERD, perforated viscous Narrative Course CBC & BMP Diagram 07/05/17 08:26 Total Protein 7.2, Albumin 3.6, Calcium Level 9.4, Alkaline Phosphatase 58, Aspartate Amino Transf (AST/SGOT) 18, Alanine Aminotransferase (ALT/SGPT) 19, Total Bilirubin 0.5 Lactic acid 1.0 Urinalysis normal The patient is resting comfortably and feels better, is alert and in no distress. The patients results and examination findings were discussed. The repeat examination is unremarkable and benign. The history, exam, diagnostic testing, and current condition do not suggest any significant pathology to warrant further testing, continued ED treatment, admission, or surgical evaluation at this point. The vital signs have been stable. The patient does not have uncontrollable pain, intractable vomiting, or other significant symptoms. The patient's condition is stable and appropriate for discharge. The patient will pursue further outpatient evaluation with a primary care physician or other designated or consulting physician as indicated in the discharge instructions. The patient expressed understanding and was agreeable with this plan. Diagnosis Primary Impression: C. difficile colitis Additional Impression: Abdominal pain Qualified Codes: R10.9 - Unspecified abdominal pain Referrals: Primary Care Physician call for appointment Med/Other Pt SpecificInfo: Prescription(s) given Scripts Metronidazole (Flagyl) 500 Mg Tab 500 MG PO TID for Infection for 14 Days, TAB 0 Refills Prov: Hermes Heaton MD 07/05/17 Gabapentin (Neurontin) 100 Mg Cap 100 MG PO TID, #90 CAP 0 Refills Prov: Hermes Heaton MD 07/05/17 Disposition: 01 DISCHARGE HOME Hermes Heaton MD Jul 05, 2017 08:21
[2017-07-05 08:33] LABS: AUTOMATED NEUTROPHIL # 4.1 TH/MM3 (1.8-7.7); BASOPHIL % 0.7 % (0.0-2.0); EOSINOPHIL # 0.1 TH/MM3 (0-0.4); EOSINOPHIL % 2.2 % (0.0-4.0); HEMOGLOBIN 11.7 GM/DL (11.6-15.3); LYMPHOCYTE # 1.3 TH/MM3 (1.0-4.8); MEAN CELL VOLUME 88.8 FL (80.0-100.0); MEAN CORPUSCULAR HEMOGLOBIN 29.7 PG (27.0-34.0); MEAN CORPUSCULAR HGB CONC 33.4 % (32.0-36.0); MEAN PLATELET VOLUME 7.4 FL (7.0-11.0); MONO % 7.9 % (0.0-8.0); MONOCYTE # 0.5 TH/MM3 (0-0.9); NEUT % 68.2 % (16.0-70.0); PLATELET COUNT 343 TH/MM3 (150-450); RED BLOOD COUNT 3.94 MIL/MM3 (4.00-5.30); RED CELL DISTRIBUTION WIDTH 12.8 % (11.6-17.2)
[2017-07-05 08:47] LABS: CHLORIDE 98 MEQ/L (98-107); SODIUM (NA) 134 MEQ/L (136-145)
[2017-07-05 08:50] LABS: CALCIUM 9.4 MG/DL (8.5-10.1)
[2017-07-05 08:51] LABS: ALBUMIN 3.6 GM/DL (3.4-5.0); BICARBONATE 29.6 MEQ/L (21.0-32.0); BLOOD UREA NITROGEN 8 MG/DL (7-18); GLUCOSE,RANDOM 127 MG/DL (74-106)
[2017-07-05 08:54] LABS: ALT (GPT) 19 U/L (10-53); AST (GOT) 18 U/L (15-37); CREATININE 0.77 MG/DL (0.50-1.00); GLOMERULAR FILTRATION RATE 72 ML/MIN (>89)
[2017-07-05 08:55] LABS: TOTAL BILIRUBIN ADULT 0.5 MG/DL (0.2-1.0); TOTAL PROTEIN 7.2 GM/DL (6.4-8.2)
[2017-07-05 08:57] LABS: ALKALINE PHOSPHATASE 58 U/L (45-117)
[2017-07-05 09:40] VITALS: BP 154/68; PULSE 96; RESP 18; O2SAT 96
[2017-07-05 10:07] LABS: BILIRUBIN, URINE NEG (NEG); BLOOD, URINE NEG (NEG); GLUCOSE,URINE NEG (NEG); KETONE, URINE NEG (NEG); NITRITE,URINE NEG (NEG); URINE LEUKOCYTE ESTERASE NEG (NEG)
[2017-07-05 10:09] LABS: URINE COLOR STRAW (YELLW/STRAW)
[2017-07-05 10:11] LABS: AMORPHOUS SEDIMENT, URINE FEW; RBC, URINE 0-3 /hpf (0-3); SQUAMOUS EPITHELIAL CELL URINE 0-5 /hpf (0-5)
[2017-07-05] MEDS ORDERED: METR-1 PO (10:22)
[2017-07-05] MEDS ORDERED: NEUR100C PO (10:22)
== END 2017-07-05 10:45 | disposition home or self-care (01) ==
LOC: PHED 07:50
DX: A04.72 Enterocolitis due to Clostridium difficile, not specified as recurrent (principal); M79.7 Fibromyalgia; I10 Essential (primary) hypertension; Z87.891 Personal history of nicotine dependence
CPT/HCPCS: 80053; 81001; 83605; 83690; 85025; 96374; 96375; 99284; J2270; J2405

== ENCOUNTER 2017-07-07 06:10 | Emergency (ER) | payer MEDICARE ==
[~2017-07-07] VITALS: Ht 162.6 cm; Wt 57.3 kg
[~2017-07-07 06:10] MED LIST changes: +METR-1 PO; +NEUR100C PO; +RANI150T PO; +VANC125C3 PO
[2017-07-07 06:29] VITALS: BP 98/53; PULSE 111; RESP 16; TEMP 97.7; O2SAT 97
[2017-07-07 06:36] VITALS: PULSE 89; RESP 16; O2SAT 96
--- NOTE | 2017-07-07 07:03 | PD ---
HPI Chief Complaint: Pain: Acute or Chronic Time Seen by Provider: 06:55 Travel History International Travel<30 days: No Contact w/Intl Traveler<30days: No Traveled to known affect area: No History of Present Illness HPI The patient is an 81-year-old female, frequent visitor to the emergency Department who complains of right arm pain and abdominal pain. The states the main problem is abdominal pain. The right arm pain is been going on for 2 hours and occurred when she woke up this morning. The patient had clostridium difficile and apparently gave her oral vancomycin for this. She denies any nausea, vomiting or diarrhea. The patient also has right anterior sharp, pleuritic chest pain which is reproducible by pressing on the chest wall. She also complains of bilateral feet tingling. PFSH Past Medical History Hx Anticoagulant Therapy: Yes Arthritis: Yes Cancer: No Cardiovascular Problems: Yes Diminished Hearing: Yes Endocrine: No Fibromyalgia: Yes Gastrointestinal Disorders: Yes (LOSS OF APPETITE) Glaucoma: Yes Genitourinary: No Hypertension: Yes Immune Disorder: No Musculoskeletal: Yes (ARTHRITIS IN NECK AND BACK) Neurologic: No Psychiatric: No Reproductive: Yes (HYSTERECTOMY) Respiratory: No Tetanus Vaccination: Unknown ?: Not Menopausal: Yes Past Surgical History Gynecologic Surgery: Yes (HYSTERECTOMY AND BILATERAL OOPHORECTOMY) Hysterectomy: Yes Other Surgery: Yes (Iliac stents ) Social History Alcohol Use: No Tobacco Use: No Substance Use: No Allergies-Medications (Allergen,Severity, Reaction): Coded Allergies: acetaminophen (Verified Allergy, Severe, GI UPSET, 07/07/17) doxycycline (Verified Allergy, Severe, Hives, 07/07/17) iodine (Verified Allergy, Severe, Edema, 07/07/17) minocycline (Verified Allergy, Severe, Hives, 07/07/17) potassium iodide (Verified Allergy, Severe, Edema, 07/07/17) povidone-iodine (Verified Allergy, Severe, Edema, 07/07/17) sodium iodide (Verified Allergy, Severe, Edema, 07/07/17) sodium iodide (Verified Allergy, Severe, Edema, 07/07/17) tigecycline (Verified Allergy, Severe, Hives, 07/07/17) aspirin (Verified Allergy, Mild, GI UPSET, 07/07/17) pentoxifylline (Verified Allergy, Unknown, 07/07/17) shellfish derived (Verified Allergy, Unknown, Nausea/Vomiting, 07/07/17) HIVES sulfamethoxazole (Verified Allergy, Unknown, 07/07/17) trimethoprim (Verified Allergy, Unknown, 07/07/17) Reported Meds & Prescriptions Reported Meds & Active Scripts Active Reported Calcium 600 with Vitamin D (Calcium Carbonate-Cholecalciferol) 600-400 mg-Unit Tab 1 Tab PO DAILY Fish Oil 1200 mg ([place]-3 Fatty Acids) 360 Mg-1,200 Mg Cap 1,200 Mg PO DAILY Telmisartan 80 Mg Tab 80 Mg PO DAILY Methadone (Methadone HCl) 10 Mg Tab 10 Mg PO TID Latanoprost Opth Drops (Latanoprost) 0.005% Drops 1 Drop EACH EYE HS Refrigerate until opened. Hydrochlorothiazide 25 Mg Tab 25 Mg PO DAILY Dorzolamide-Timolol Opth Drops 22.3-6.8 Mg/Ml Soln 1 Drop EACH EYE BID Biotin 10 Mg Tab 10 Mg PO DAILY Aspirin 81 Mg Chew 81 Mg CHEW DAILY Review of Systems Except as stated in HPI: all other systems reviewed are Neg Physical Exam Narrative GENERAL: The patient appears mildly dehydrated, alert, oriented 3 in minimal apparent distress with her chest/abdominal discomfort. Her vital signs show pulse of 111 and blood pressure 98/53 but otherwise are normal. SKIN: Focused skin assessment warm/dry. HEAD: Atraumatic. Normocephalic. EYES: Pupils equal and round. No scleral icterus. No injection or drainage. ENT: No nasal bleeding or discharge. Mucous membranes pink and moist. NECK: Trachea midline. No JVD. CARDIOVASCULAR: Regular rate and rhythm. No murmur appreciated. RESPIRATORY: No accessory muscle use. Clear to auscultation. Breath sounds equal bilaterally. GASTROINTESTINAL: Abdomen soft, with diffuse tenderness all 4 quadrants, particularly the right upper quadrant, nondistended. Hepatic and splenic margins not palpable. No guarding or rebound is present and Lopez's sign is negative. MUSCULOSKELETAL: No obvious deformities. No clubbing. No cyanosis. No edema. NEUROLOGICAL: Awake and alert. No obvious cranial nerve deficits. Motor grossly within normal limits. Normal speech. PSYCHIATRIC: Appropriate mood and affect; insight and judgment normal. Data Data Last Documented VS Vital Signs Date Time Temp Pulse Resp B/P (MAP) Pulse Ox O2 Delivery O2 Flow Rate FiO2 07/07/17 06:36 89 16 96 Room Air 07/07/17 06:29 97.7 98/53 (68) Orders Orders Electrocardiogram (07/07/17 06:55) Complete Blood Count With Diff (07/07/17 06:55) Comprehensive Metabolic Panel (07/07/17 06:55) Ckmb (Isoenzyme) Profile (07/07/17 06:55) Troponin I (07/07/17 06:55) Lipase (07/07/17 06:55) Urinalysis - C+S If Indicated (07/07/17 06:55) Ct Abd/Pel W/O Iv Contrast (07/07/17 06:55) Chest, Pa & Lat (07/07/17 07:03) MDM Medical Decision Making Medical Screen Exam Complete: Yes Emergency Medical Condition: Yes Medical Record Reviewed: Yes Differential Diagnosis Cholecystitis, pancreatitis, electrolyte disorder, dehydration, colitis, pneumonia, chest wall pain, acute coronary syndrome-unlikely Narrative Course It is now 0704 and Is taking over the patient. Elvin Darling MD Jul 07, 2017 07:03
[2017-07-07 07:20] LABS: AUTOMATED NEUTROPHIL # 6.7 TH/MM3 (1.8-7.7); BASOPHIL % 0.5 % (0.0-2.0); EOSINOPHIL # 0.1 TH/MM3 (0-0.4); EOSINOPHIL % 1.7 % (0.0-4.0); HEMATOCRIT 35.4 % (35.0-46.0); HEMOGLOBIN 11.6 GM/DL (11.6-15.3); LYMPH % 12.9 % (9.0-44.0); LYMPHOCYTE # 1.1 TH/MM3 (1.0-4.8); MEAN CELL VOLUME 89.8 FL (80.0-100.0); MEAN CORPUSCULAR HEMOGLOBIN 29.4 PG (27.0-34.0); MEAN CORPUSCULAR HGB CONC 32.7 % (32.0-36.0); MEAN PLATELET VOLUME 7.5 FL (7.0-11.0); MONO % 7.1 % (0.0-8.0); MONOCYTE # 0.6 TH/MM3 (0-0.9); NEUT % 77.8 % (16.0-70.0); PLATELET COUNT 358 TH/MM3 (150-450); RED BLOOD COUNT 3.94 MIL/MM3 (4.00-5.30); RED CELL DISTRIBUTION WIDTH 13.1 % (11.6-17.2); WHITE BLOOD COUNT 8.5 TH/MM3 (4.0-11.0)
[2017-07-07 07:28] LABS: CHLORIDE 98 MEQ/L (98-107); SODIUM (NA) 135 MEQ/L (136-145)
[2017-07-07 07:32] LABS: ALBUMIN 3.4 GM/DL (3.4-5.0); CALCIUM 9.4 MG/DL (8.5-10.1); GLUCOSE,RANDOM 143 MG/DL (74-106)
[2017-07-07 07:33] LABS: BLOOD UREA NITROGEN 11 MG/DL (7-18)
[2017-07-07 07:35] LABS: ALT (GPT) 17 U/L (10-53); AST (GOT) 17 U/L (15-37); CREATININE 0.83 MG/DL (0.50-1.00); GLOMERULAR FILTRATION RATE 66 ML/MIN (>89)
[2017-07-07 07:37] LABS: TOTAL BILIRUBIN ADULT 0.5 MG/DL (0.2-1.0); TOTAL PROTEIN 7.1 GM/DL (6.4-8.2)
[2017-07-07 07:38] LABS: ALKALINE PHOSPHATASE 58 U/L (45-117)
--- NOTE | 2017-07-07 07:38 | RADRPT ---
EXAM DATE/TIME: 07/07/2017 07:16 [facility] COMPARISON: CHEST PA & LAT, November 17, 2014, 11:20. INDICATIONS : Short of breath, right arm numbness, numbness in legs MEDICAL HISTORY : Hypertension. SURGICAL HISTORY : None. ENCOUNTER: Initial ACUITY: 1 day PAIN SCORE: Non-responsive. LOCATION: Bilateral chest FINDINGS: PA and lateral views of the chest demonstrate the lungs to be symmetrically aerated without evidence of mass, infiltrate or effusion. The cardiomediastinal contours are unremarkable. Moderate severity scoliosis the rectal lumbar spine towards the left. IVC filter in place.. CONCLUSION: The lungs are clear. Tobin Alexis MD on July 07, 2017 at 7:36 Board Certified Radiologist. This report was verified electronically.
[2017-07-07 07:40] VITALS: BP 125/52; PULSE 82; RESP 18; O2SAT 97
[2017-07-07 07:40] LABS: TROPONIN I LESS THAN 0.02 NG/ML (0.02-0.05)
--- NOTE | 2017-07-07 07:57 | RADRPT ---
EXAM DATE/TIME: 07/07/2017 07:38 [facility] COMPARISON: CT ABDOMEN & PELVIS W/O CONTRAST, June 29, 2017, 5:07. INDICATIONS : Upper abdominal pain. ORAL CONTRAST: No oral contrast ingested. RADIATION DOSE: 6.19 CTDIvol (mGy) MEDICAL HISTORY : Hypertension. SURGICAL HISTORY : Hysterectomy. Iliac stent. ENCOUNTER: Initial ACUITY: 2 days PAIN SCALE: 5/10 LOCATION: upper quadrant abdomen TECHNIQUE: Volumetric scanning of the abdomen and pelvis was performed. Using automated exposure control and ad justment of the mA and/or kV according to patient size, radiation dose was kept as low as reasonably achievable to obtain optimal diagnostic quality images. DICOM format image data is available electro nically for review and comparison. FINDINGS: LOWER LUNGS: The visualized lower lungs are clear. LIVER: Homogeneous density without lesion for noncontrast technique. There is no dilation of the biliary tr ee. No calcified gallstones. SPLEEN: Normal size without lesion. PANCREAS: Within normal limits. KIDNEYS: Normal in size and shape. There is no mass, stone, or hydronephrosis. ADRENAL GLANDS: Within normal limits. VASCULAR: Diffuse arteriosclerotic calcifications. Stent graft in the distal aorta and iliac vessels. BOWEL/MESENTERY: No dilated loops of small or large bowel. Mild amount of stool throughout the colon. No evidence of free fluid or free intraperitoneal gas. ABDOMINAL WALL: Within normal limits. RETROPERITONEUM: There is no lymphadenopathy. BLADDER: Distended bladder with smooth margins. REPRODUCTIVE: Within normal limits. INGUINAL: There is no lymphadenopathy or hernia. MUSCULOSKELETAL: Stable left thoracolumbar scoliosis. CONCLUSION: No acute findings. Tobin Alexis MD on July 07, 2017 at 7:51 Board Certified Radiologist. This report was verified electronically.
[2017-07-07 08:08] LABS: BILIRUBIN, URINE NEG (NEG); BLOOD, URINE NEG (NEG); GLUCOSE,URINE NEG (NEG); KETONE, URINE NEG (NEG); NITRITE,URINE NEG (NEG); PH, URINE 8.5 (5.0-8.5); URINE LEUKOCYTE ESTERASE NEG (NEG)
[2017-07-07 08:10] VITALS: BP 125/72; PULSE 18; PULSE 78; RESP 18; O2SAT 97
[2017-07-07 08:13] LABS: URINE COLOR STRAW (YELLW/STRAW)
--- NOTE | 2017-07-07 08:13 | PD ---
Data Data Last Documented VS Vital Signs Date Time Temp Pulse Resp B/P (MAP) Pulse Ox O2 Delivery O2 Flow Rate FiO2 07/07/17 07:40 82 18 125/52 (76) 97 Room Air 07/07/17 06:29 97.7 Orders Orders Electrocardiogram (07/07/17 06:55) Complete Blood Count With Diff (07/07/17 06:55) Comprehensive Metabolic Panel (07/07/17 06:55) Ckmb (Isoenzyme) Profile (07/07/17 06:55) Troponin I (07/07/17 06:55) Lipase (07/07/17 06:55) Urinalysis - C+S If Indicated (07/07/17 06:55) Ct Abd/Pel W/O Iv Contrast (07/07/17 06:55) Chest, Pa & Lat (07/07/17 07:03) Potassium Chloride (Kcl) (07/07/17 08:15) Al-Mag Hy-Si 40-40-4 Mg/Ml Liq (Mag-Al P (07/07/17 08:15) Lidocaine 2% Viscous (Xylocaine 2% Visco (07/07/17 08:15) Labs Laboratory Tests Test 07/07/17 07:15 07/07/17 08:02 White Blood Count 8.5 TH/MM3 Red Blood Count 3.94 MIL/MM3 Hemoglobin 11.6 GM/DL Hematocrit 35.4 % Mean Corpuscular Volume 89.8 FL Mean Corpuscular Hemoglobin 29.4 PG Mean Corpuscular Hemoglobin Concent 32.7 % Red Cell Distribution Width 13.1 % Platelet Count 358 TH/MM3 Mean Platelet Volume 7.5 FL Neutrophils (%) (Auto) 77.8 % Lymphocytes (%) (Auto) 12.9 % Monocytes (%) (Auto) 7.1 % Eosinophils (%) (Auto) 1.7 % Basophils (%) (Auto) 0.5 % Neutrophils # (Auto) 6.7 TH/MM3 Lymphocytes # (Auto) 1.1 TH/MM3 Monocytes # (Auto) 0.6 TH/MM3 Eosinophils # (Auto) 0.1 TH/MM3 Basophils # (Auto) 0.0 TH/MM3 CBC Comment DIFF FINAL Differential Comment Blood Urea Nitrogen 11 MG/DL Creatinine 0.83 MG/DL Random Glucose 143 MG/DL Total Protein 7.1 GM/DL Albumin 3.4 GM/DL Calcium Level 9.4 MG/DL Alkaline Phosphatase 58 U/L Aspartate Amino Transf (AST/SGOT) 17 U/L Alanine Aminotransferase (ALT/SGPT) 17 U/L Total Bilirubin 0.5 MG/DL Sodium Level 135 MEQ/L Potassium Level 3.0 MEQ/L Chloride Level 98 MEQ/L Carbon Dioxide Level 30.0 MEQ/L Anion Gap 7 MEQ/L Estimat Glomerular Filtration Rate 66 ML/MIN Total Creatine Kinase 56 U/L Troponin I LESS THAN 0.02 NG/ML Lipase 212 U/L Urine Collection Type CLEAN CATCH Urine Color STRAW Urine Turbidity CLEAR Urine pH 8.5 Urine Specific [place] 1.007 Urine Protein NEG mg/dL Urine Glucose (UA) NEG mg/dL Urine Ketones NEG mg/dL Urine Occult Blood NEG Urine Nitrite NEG Urine Bilirubin NEG Urine Leukocyte Esterase NEG Urine RBC 0-3 /hpf Urine Squamous Epithelial Cells 6-8 /hpf Urine Transitional Epithelial Cells 0-5 /hpf Urine Amorphous Sediment MOD Microscopic Urinalysis Comment CULT NOT INDICATED Urine Collection Time 0802 [facility] Supervised Visit with [place]: No Narrative Course The patient was initially evaluated by the previous provider and signed out to me at the beginning my shift pending labs, CT abdomen pelvis, and disposition. See his note for further details. Briefly this is an 81-year-old female who was recently diagnosed with C. difficile colitis and treated with oral vancomycin, here for evaluation of abdominal pain, right arm pain, and right-sided chest pain. Patient has epigastric abdominal pain that started when she woke up this morning. Reports that the rest of her abdomen discomfort that has been going on from the seated has actually improved. She also has right, sharp, pleuritic chest pain that is reproducible on exam as well as bilateral feet tingling. On physical exam the patient is awake and alert and resting comfortably. There are no focal deficits. Abdominal exam shows no tenderness or peritoneal signs. Breath sounds are clear and equal bilaterally. Vital signs show heart rate 82, blood pressure 125/52, pulse ox 97% on room air, oral temp of 97.7F. CBC is unremarkable. CMP is remarkable for potassium 3.0 which was replaced orally. Cardiac enzymes are negative. Lipase is 212. Chest x-ray read as lungs are clear. CT abdomen pelvis shows no acute findings. UA is not suggestive of UTI. EKG shows no signs of ischemia, unchanged from prior. Case was discussed with on-call [facility] hospitalist Dr. Suh who evaluated the patient at the bedside. At this point the patient does not require inpatient admission and can follow-up in their office tomorrow. Patient and the patient's significant other were made aware of all findings. Again she is resting comfortably in no acute distress. No peritoneal signs on abdominal exam. They were advised on when to return to the emergency department. They verbalized understanding and agreement with plan. Diagnosis Primary Impression: Hypokalemia Additional Impression: Epigastric abdominal pain Referrals: Primary Care Physician 1 day Additional Instruction: Follow-up with your primary care physician tomorrow. Return to the emergency department for worsening symptoms or any other concerns. Disposition: 01 DISCHARGE HOME Condition: Stable Shane Greenberg MD Jul 07, 2017 08:13
[2017-07-07 08:14] LABS: AMORPHOUS SEDIMENT, URINE MOD; RBC, URINE 0-3 /hpf (0-3)
[2017-07-07 08:15] LABS: TRANSITIONAL EPI CELLS, URINE 0-5 /hpf
[2017-07-07] MEDS ORDERED: POTASSIUM CHLORIDE 20 MEQ CONTROLLED RELEASE TAB PO ONE (08:15)
[2017-07-07] MEDS ORDERED: LIDOCAINE VISCOUS 2% SOLN 15 ML UDC PO ONE (08:15)
[2017-07-07] MEDS ORDERED: ALUMINUM/MAGNESIUM/SIMETH 30 ML CUP PO ONE (08:15)
[2017-07-07 09:32] VITALS: BP 122/59
--- NOTE | 2017-07-07 12:02 | HHI.PR ---
Subjective Remarks I evaluated pt while she was visiting ER earlier this AM around 8:00. I examined her in xray dept after she had CXR done. She reported having RUQ/epigastric pain over last 3 days with some pleuritic right sided CP as well. Epigastric pain is worse at night after she has been lying flat and several hrs after she has eaten dinner. She doesn't generally eat much food per her but tends to snack on peanut butter crackers during the day and have larger meal at night. She has recently been treated for C diff colitis and her diarrhea/lower GI cramps have all resolved. No f/c. No melena. BMs have normalized. No vomiting. +nausea at times. Symptoms are non-exertional, but she admittedly hasn't been doing much exertionally over last couple of weeks. PMH COPD Adj d/o with depressed mood AAA s/p endo graft CKD3 GERD Chronic pain/ lumbar facet syndrome Mes Art stenosis PAD PSH Appy Cataract surgery Hernia repair Retinal surgery Endograft rpr AAA 2014 ARAVIND/USO Reported Meds Calcium 600 with Vitamin D (Calcium Carbonate-Cholecalciferol) 600-400 mg-Unit Tab 1 Tab PO DAILY Fish Oil 1200 mg ([place]-3 Fatty Acids) 360 Mg-1,200 Mg Cap 1,200 Mg PO DAILY Telmisartan 80 Mg Tab 80 Mg PO DAILY Methadone (Methadone HCl) 10 Mg Tab 10 Mg PO TID Latanoprost Opth Drops (Latanoprost) 0.005% Drops 1 Drop EACH EYE HS Refrigerate until opened. Hydrochlorothiazide 25 Mg Tab 25 Mg PO DAILY Dorzolamide-Timolol Opth Drops 22.3-6.8 Mg/Ml Soln 1 Drop EACH EYE BID Biotin 10 Mg Tab 10 Mg PO DAILY Aspirin 81 Mg Chew 81 Mg CHEW DAILY Oral Vancomycin liquid Allergies: see list. SH originally from [place], has been in [place] for over 35 yrs. No tobacco use in 30 yrs, 3/4 ppd for 25 yrs prior. Denies EtOH or illicit drug use Retired from [employer] for >30 yrs (second marriage) 2 adult children Physical Exam GENERAL: nad, a/o, hard of hearing, cooperative SKIN: Warm and dry. No obvious rash HEAD: Normocephalic. EYES: No scleral icterus. No injection or drainage. EOMI, post surgical changes NECK: Supple, trachea midline. No JVD or lymphadenopathy. CARDIOVASCULAR: Regular rate and rhythm without murmurs, gallops, or rubs. Reproducible pain over right ant chest wall RESPIRATORY: Breath sounds equal bilaterally. No accessory muscle use. No wheeze or crackle. GASTROINTESTINAL: Abdomen soft, nondistended. BS wnl. TTP RUQ, epigastrium. No G/R. No bruit or pulsatile mass on exam. MUSCULOSKELETAL: No cyanosis, or edema. MAEW. BACK: No CVA tenderness. Objective Vitals Vital Signs Date Time Temp Pulse Resp B/P (MAP) Pulse Ox O2 Delivery O2 Flow Rate FiO2 07/07/17 09:32 78 18 122/59 (80) 07/07/17 08:10 78 18 125/72 (89) 97 Nasal Cannula 07/07/17 07:40 82 18 125/52 (76) 97 Room Air 07/07/17 06:36 89 16 96 Room Air 07/07/17 06:32 16 07/07/17 06:29 97.7 111 16 98/53 (68) 97 Result Diagram: 07/07/17 0715 07/07/17 0715 Imaging Last 72 hours Impressions Chest X-Ray 07/07/17 0703 Signed Impressions: Service Date/Time: Friday, July 07, 2017 07:16 - CONCLUSION: The lungs are clear. Tobin Alexis MD Abdomen/Pelvis CT 07/07/17 0655 Signed Impressions: Service Date/Time: Friday, July 07, 2017 07:38 - CONCLUSION: No acute findings. Tobin Alexis MD Urinary Catheter: No Vascular Central Line Catheter: No A/P Problem List: (1) Epigastric abdominal pain ICD Codes: R10.13 - Epigastric pain (2) Pleuritic pain ICD Codes: R07.81 - Pleurodynia (3) Chronic pain ICD Codes: G89.29 - Chronic pain Status: Acute Assessment and Plan A/P: 1. Epigastric pain- ? GERD/ulcer- try GI cocktail in ER. Close f/u as outpt. Message sent to her PCP for possible PPI. CT, labs unremarkable. Last EGD 2011. ? outpt GI eval. 2. Pleuritic pain- ? etiology. CXR neg and VSS. No acute resp distress. Reproducible with palpation, so possible costochondritis. Monitor as outpt. Trying to Avoid NSAID in case of ulcer/GERD. She has methadone for chronic pain. 3. LE paresthesia- no focal deficit on exam. Has been given gabapentin before. Outpt f/u. Andrade Suh MD PhD Jul 07, 2017 12:02
--- NOTE | 2017-07-07 15:09 | EKG ---
Date Performed: 07/07/2017 Time Performed: 07:12:35 PTAGE: 81 years EKG: Sinus rhythm WITH OCCASIONAL SUPRAVENTRICULAR PREMATURE COMPLEXES POSSIBLE RIGHT VENTRICULAR CONDUCTION DELAY NON SPECIFIC T-WAVE ABNORMALITY BORDERLINE ECG Consider anterolateral ischemia. PREVIOUS TRACING : 07/01/2017 04.44 DOCTOR: Kalen Murray Interpretating Date/Time 07/07/2017 15:08:43
== END 2017-07-07 09:33 | disposition home or self-care (01) ==
LOC: PHED 06:10
DX: E87.6 Hypokalemia (principal); R10.13 Epigastric pain; R07.89 Other chest pain; M79.601 Pain in right arm; R20.2 Paresthesia of skin; R94.31 Abnormal electrocardiogram [ECG] [EKG]; M19.90 Unspecified osteoarthritis, unspecified site; M79.7 Fibromyalgia; I10 Essential (primary) hypertension
CPT/HCPCS: 71046; 74176; 80053; 81001; 82550; 83690; 84484; 85025; 93005

== ENCOUNTER 2017-11-01 04:31 | Emergency (ER) | payer MEDICARE ==
[~2017-11-01] VITALS: Ht 162.6 cm; Wt 51.3 kg
[~2017-11-01 04:31] MED LIST changes: -HYDR-3799 PO; -METR-1 PO; -NEUR100C PO; -POTA1TAB4 PO; -RANI150T PO; -VANC125C3 PO; -ZOFR4TAB3 SL
[2017-11-01 04:55] VITALS: BP 140/74; PULSE 85; RESP 16; TEMP 98.3; O2SAT 98
[2017-11-01 05:00] VITALS: O2SAT 99
[2017-11-01] MEDS ORDERED: SODIUM CHLORIDE 0.9% FLUSH 10 ML FLUSH IVF PRN (05:00)
--- NOTE | 2017-11-01 05:06 | PD ---
HPI Chief Complaint: Hypertension Time Seen by Provider: 04:53 Travel History International Travel<30 days: No Contact w/Intl Traveler<30days: No Traveled to known affect area: No History of Present Illness HPI 82-year-old female presents to the emergency department by private vehicle in the care of her significant other for evaluation of chest pain, back pain, and abdominal pain. Patient also here for evaluation of elevated blood pressure. Patient also here for evaluation after upper endoscopy morning by Dr Caraballo. Patient has chronic pain syndrome for which she is prescribed methadone. Patient was not able to take her methadone as prescribed yesterday because of her procedure. Patient has history of hypertension peripheral vascular disease, atherosclerosis and is followed by Dr. Garzon. Patient reportedly was feeling anxious at home prior to arrival to the emergency department and took 2 of her "as needed high blood pressure pills" due to elevation of blood pressure at home. Patient was also noting some increased heart rate according to the . So she has been brought her to the emergency room for evaluation. Presently she feels improved. Patient states she has no chest pain, no abdominal pain, just her chronic left posterior back/ shoulder pain that she has had 1 month after non-syncopal slip and fall is noted with movement. reports because of her endoscopy she did not get her methadone as prescribed. Reportedly she only had a half dose of methadone morning. No reported concern or complaint of headache vomiting diarrhea flank pain upper or lower extremity numbness tingling weakness or pain. No reported altered mentation. Patient denies any abdominal pain at this time; she denies any palpable abdominal pain at this time. Patient is unable to identify exacerbating or alleviating factors. No pain medicine was taken for her left upper back and shoulder pain; pain was 3/10 in intensity but has decreased to 0/10. PFSH Past Medical History Narrative Medical Arthritis hypertension diminished hearing fibromyalgia GERD glaucoma hysterectomy AAA graft repair iliac stents; no tobacco use; nursing notes reviewed Hx Anticoagulant Therapy: Yes Arthritis: Yes Cancer: No Cardiovascular Problems: Yes Diminished Hearing: Yes Endocrine: No Fibromyalgia: Yes Gastrointestinal Disorders: Yes (LOSS OF APPETITE) Glaucoma: Yes Genitourinary: No Hypertension: Yes Immune Disorder: No Musculoskeletal: Yes (ARTHRITIS IN NECK AND BACK) Neurologic: No Psychiatric: No Reproductive: Yes (HYSTERECTOMY) Respiratory: No Menopausal: Yes Past Surgical History Gynecologic Surgery: Yes (HYSTERECTOMY AND BILATERAL OOPHORECTOMY) Hysterectomy: Yes Other Surgery: Yes (Iliac stents ) Social History Alcohol Use: No Tobacco Use: No Substance Use: No Allergies-Medications (Allergen,Severity, Reaction): Coded Allergies: acetaminophen (Verified Allergy, Severe, GI UPSET, 11/01/17) doxycycline (Verified Allergy, Severe, Hives, 11/01/17) iodine (Verified Allergy, Severe, Edema, 11/01/17) minocycline (Verified Allergy, Severe, Hives, 11/01/17) potassium iodide (Verified Allergy, Severe, Edema, 11/01/17) povidone-iodine (Verified Allergy, Severe, Edema, 11/01/17) sodium iodide (Verified Allergy, Severe, Edema, 11/01/17) sodium iodide (Verified Allergy, Severe, Edema, 11/01/17) tigecycline (Verified Allergy, Severe, Hives, 11/01/17) pentoxifylline (Verified Allergy, Unknown, 11/01/17) shellfish derived (Verified Allergy, Unknown, Nausea/Vomiting, 11/01/17) HIVES sulfamethoxazole (Verified Allergy, Unknown, 11/01/17) trimethoprim (Verified Allergy, Unknown, 11/01/17) Reported Meds & Prescriptions Reported Meds & Active Scripts Active Reported Calcium 600 with Vitamin D (Calcium Carbonate-Cholecalciferol) 600-400 mg-Unit Tab 1 Tab PO DAILY Fish Oil 1200 mg ([place]-3 Fatty Acids) 360 Mg-1,200 Mg Cap 1,200 Mg PO DAILY Telmisartan 80 Mg Tab 80 Mg PO DAILY Methadone (Methadone HCl) 10 Mg Tab 10 Mg PO TID Latanoprost Opth Drops (Latanoprost) 0.005% Drops 1 Drop EACH EYE HS Refrigerate until opened. Hydrochlorothiazide 25 Mg Tab 25 Mg PO DAILY Dorzolamide-Timolol Opth Drops 22.3-6.8 Mg/Ml Soln 1 Drop EACH EYE BID Biotin 10 Mg Tab 10 Mg PO DAILY Aspirin 81 Mg Chew 81 Mg CHEW DAILY Review of Systems Except as stated in HPI: all other systems reviewed are Neg Physical Exam Narrative GENERAL: Well-developed thin female in no acute distress no respiratory distress SKIN: Warm and dry. HEAD: Normocephalic. EYES: No scleral icterus. No injection or drainage. NECK: Supple, trachea midline. No JVD or lymphadenopathy. CARDIOVASCULAR: Regular rate and rhythm without murmurs, gallops, or rubs. RESPIRATORY: Breath sounds equal bilaterally. No accessory muscle use. GASTROINTESTINAL: Abdomen soft, non-tender, nondistended. MUSCULOSKELETAL: No cyanosis, or edema. Radial and dorsalis pedis pulses are 2 + to palpation bilaterally. BACK: Nontender without obvious deformity. No CVA tenderness. Data Data Last Documented VS Vital Signs Date Time Temp Pulse Resp B/P (MAP) Pulse Ox O2 Delivery O2 Flow Rate FiO2 11/01/17 06:14 98.5 72 16 112/61 (78) 100 Room Air Orders Orders Electrocardiogram (11/01/17 ) Ckmb (Isoenzyme) Profile (11/01/17 04:53) Complete Blood Count With Diff (11/01/17 04:53) Comprehensive Metabolic Panel (11/01/17 04:53) Magnesium (Mg) (11/01/17 04:53) Prothrombin Time / Inr (Pt) (11/01/17 04:53) Act Partial Throm Time (Ptt) (11/01/17 04:53) Troponin I (11/01/17 04:53) Lipase (11/01/17 04:53) Chest, Single Ap (11/01/17 04:53) Ecg Monitoring (11/01/17 04:53) Bilateral Bp Monitoring (11/01/17 04:53) Iv Access Insert/Monitor (11/01/17 04:53) Oximetry (11/01/17 04:53) Oxygen Administration (11/01/17 04:53) Sodium Chloride 0.9% Flush (Ns Flush) (11/01/17 05:00) Urinalysis - C+S If Indicated (11/01/17 04:53) Urine Culture (11/01/17 05:23) Cath For Specimen (11/01/17 06:13) CKMB (11/01/17 05:05) CKMB% (11/01/17 05:05) Ceftriaxone Inj (Rocephin Inj) (11/01/17 06:30) Potassium Chloride (Kcl) (11/01/17 06:30) Potassium Chlor 10 Meq Premix (Kcl 10 Me (11/01/17 06:30) Sodium Chlorid 0.9% 500 Ml Inj (Ns 500 M (11/01/17 06:30) Methadone (Dolophine) (11/01/17 07:00) Labs Laboratory Tests Test 11/01/17 05:05 11/01/17 05:23 White Blood Count 6.5 TH/MM3 Red Blood Count 4.11 MIL/MM3 Hemoglobin 12.0 GM/DL Hematocrit 36.2 % Mean Corpuscular Volume 88.1 FL Mean Corpuscular Hemoglobin 29.1 PG Mean Corpuscular Hemoglobin Concent 33.1 % Red Cell Distribution Width 13.2 % Platelet Count 372 TH/MM3 Mean Platelet Volume 7.9 FL Neutrophils (%) (Auto) 65.9 % Lymphocytes (%) (Auto) 22.1 % Monocytes (%) (Auto) 8.9 % Eosinophils (%) (Auto) 1.2 % Basophils (%) (Auto) 1.9 % Neutrophils # (Auto) 4.3 TH/MM3 Lymphocytes # (Auto) 1.4 TH/MM3 Monocytes # (Auto) 0.6 TH/MM3 Eosinophils # (Auto) 0.1 TH/MM3 Basophils # (Auto) 0.1 TH/MM3 CBC Comment DIFF FINAL Differential Comment Prothrombin Time 11.2 SEC Prothromb Time International Ratio 1.1 RATIO Activated Partial Thromboplast Time 25.9 SEC Blood Urea Nitrogen 16 MG/DL Creatinine 0.97 MG/DL Random Glucose 145 MG/DL Total Protein 7.1 GM/DL Albumin 3.4 GM/DL Calcium Level 8.9 MG/DL Magnesium Level 1.7 MG/DL Alkaline Phosphatase 69 U/L Aspartate Amino Transf (AST/SGOT) 21 U/L Alanine Aminotransferase (ALT/SGPT) 20 U/L Total Bilirubin 0.5 MG/DL Sodium Level 135 MEQ/L Potassium Level 2.6 MEQ/L Chloride Level 98 MEQ/L Carbon Dioxide Level 27.3 MEQ/L Anion Gap 10 MEQ/L Estimat Glomerular Filtration Rate 55 ML/MIN Total Creatine Kinase 103 U/L Creatine Kinase MB 3.5 NG/ML Troponin I LESS THAN 0.02 NG/ML Lipase 222 U/L Urine Color YELLOW Urine Turbidity CLEAR Urine pH 6.0 Urine Specific [place] LESS/EQUAL 1.005 Urine Protein NEG mg/dL Urine Glucose (UA) NEG mg/dL Urine Ketones TRACE mg/dL Urine Occult Blood NEG Urine Nitrite NEG Urine Bilirubin NEG Urine Urobilinogen 0.2 MG/DL Urine Leukocyte Esterase NEG Urine RBC 0-3 /hpf Urine WBC 3-5 /hpf Urine Squamous Epithelial Cells 0-5 /hpf Urine Bacteria MANY /hpf Microscopic Urinalysis Comment CATH-CULTURE IND MDM Medical Decision Making Medical Screen Exam Complete: Yes Emergency Medical Condition: Yes Medical Record Reviewed: Yes Interpretation(s) UA: Cath specimen positive for many bacteria culture indicated EKG normal sinus rhythm rate [address] elevation or injury pattern QS septally age-indeterminate nonspecific ST-T changes Last Impressions Chest X-Ray 11/01/17 9238 Signed Impressions: CONCLUSION: No acute cardiopulmonary process. CBC & BMP Diagram 11/01/17 05:05 Total Protein 7.1, Albumin 3.4, Calcium Level 8.9, Magnesium Level 1.7, Alkaline Phosphatase 69, Aspartate Amino Transf (AST/SGOT) 21, Alanine Aminotransferase (ALT/SGPT) 20, Total Bilirubin 0.5 Vital Signs Date Time Temp Pulse Resp B/P (MAP) Pulse Ox O2 Delivery O2 Flow Rate FiO2 11/01/17 06:14 98.5 72 16 112/61 (78) 100 Room Air 11/01/17 05:22 142/77 (98) 143/75 (97) 11/01/17 05:00 99 Room Air 11/01/17 05:00 99 11/01/17 04:58 99 Room Air 11/01/17 04:55 98.3 85 16 140/74 (96) 98 troponin I: less than 0.02, not elevated; ck: 103, not elevated Differential Diagnosis Chest pain ACS VA aortic dissection abdominal aortic aneurysm thoracic aortic aneurysm viscus perforation gastritis pancreatitis biliary colic esophageal spasm Narrative Course Patient placed on rn cardiac cath with continuous pulse oximetry IV access obtain EKG performed which showed sinus rhythm rate [address] elevation or injury pattern nonspecific ST-T wave changes age-indeterminate QS septally; lab tests ordered for CBC metabolic panel lipase and urinalysis along with EKG and CT abdomen and pelvis with urinalysis requested. Presently blood pressure is 140/74 Patient is identified to have abnormal urinalysis is cath specimen shows many bacteria cultures indicated patient given Rocephin 1 g IV CBC is automated differential is normal metabolic panel is normal except for hypokalemia potassium of 2.6. Patient has no nausea no vomiting no abdominal pain therefore given oral potassium 40 mEq and IV potassium 10 mEq as well as maintenance IV fluid bolus 500 cc normal saline. Patient is voicing no concerns or complaints at this time denies any pain. Patient resting comfortably. Vital signs have normalized. Plan will be to reassess patient and recheck potassium level after oral and IV potassium infused. Patient otherwise stable at this time for outpatient management and follow-up with primary care provider today. Diagnosis Primary Impression: UTI (urinary tract infection) Additional Impressions: Hypokalemia H/O: HTN (hypertension) Referrals: Primary Care Physician 1 day Patient Instructions: General Instructions Additional Instructions: Complete course of antibiotic as prescribed Complete course of potassium replacement as prescribed Add potassium containing foods and beverages to dietary intake Follow-up with your primary care provider 1 day call office to schedule follow- up appointment or go to the [facility] urgent care/walk-in clinic Return to the emergency department for any concerns or change in condition Med/Other Pt SpecificInfo: Prescription(s) given Scripts Potassium Chloride ER (K-Tab) 20 Meq Tab 20 MEQ PO DAILY for Electrolyte Replacement for 5 Days, #5 TAB 0 Refills Prov: Cassidy Rivera MD 11/01/17 Cephalexin (Keflex) 500 Mg Cap 500 MG PO Q6H for Infection for 10 Days, #40 CAP 0 Refills Prov: Cassidy Rivera MD 11/01/17 Disposition: 01 DISCHARGE HOME Condition: Stable Cassidy Rivera MD Nov 01, 2017 05:06
[2017-11-01 05:17] LABS: AUTOMATED NEUTROPHIL # 4.3 TH/MM3 (1.8-7.7); BASOPHIL # 0.1 TH/MM3 (0-0.2); BASOPHIL % 1.9 % (0.0-2.0); EOSINOPHIL # 0.1 TH/MM3 (0-0.4); EOSINOPHIL % 1.2 % (0.0-4.0); HEMATOCRIT 36.2 % (35.0-46.0); LYMPH % 22.1 % (9.0-44.0); LYMPHOCYTE # 1.4 TH/MM3 (1.0-4.8); MEAN CELL VOLUME 88.1 FL (80.0-100.0); MEAN CORPUSCULAR HEMOGLOBIN 29.1 PG (27.0-34.0); MEAN CORPUSCULAR HGB CONC 33.1 % (32.0-36.0); MEAN PLATELET VOLUME 7.9 FL (7.0-11.0); MONO % 8.9 % (0.0-8.0); MONOCYTE # 0.6 TH/MM3 (0-0.9); NEUT % 65.9 % (16.0-70.0); PLATELET COUNT 372 TH/MM3 (150-450); RED BLOOD COUNT 4.11 MIL/MM3 (4.00-5.30); RED CELL DISTRIBUTION WIDTH 13.2 % (11.6-17.2); WHITE BLOOD COUNT 6.5 TH/MM3 (4.0-11.0)
[2017-11-01 05:22] VITALS: BP_SYST 142; BP_SYST 143; BP_DIAS 75; BP_DIAS 77
[2017-11-01 05:24] LABS: INTERNATIONAL NORMALIZED RATIO 1.1 RATIO; PROTHROMBIN TIME - PATIENT 11.2 SEC (9.8-11.6)
[2017-11-01 05:35] LABS: ALBUMIN 3.4 GM/DL (3.4-5.0); ALKALINE PHOSPHATASE 69 U/L (45-117); ALT (GPT) 20 U/L (10-53); AST (GOT) 21 U/L (15-37); BICARBONATE 27.3 MEQ/L (21.0-32.0); BLOOD UREA NITROGEN 16 MG/DL (7-18); CALCIUM 8.9 MG/DL (8.5-10.1); CHLORIDE 98 MEQ/L (98-107); CREATININE 0.97 MG/DL (0.50-1.00); GLOMERULAR FILTRATION RATE 55 ML/MIN (>89); GLUCOSE,RANDOM 145 MG/DL (74-106); MAGNESIUM 1.7 MG/DL (1.5-2.5); SODIUM (NA) 135 MEQ/L (136-145); TOTAL BILIRUBIN ADULT 0.5 MG/DL (0.2-1.0); TOTAL PROTEIN 7.1 GM/DL (6.4-8.2); TROPONIN I LESS THAN 0.02 NG/ML (0.02-0.05)
[2017-11-01 05:40] LABS: BILIRUBIN, URINE NEG (NEG); BLOOD, URINE NEG (NEG); GLUCOSE,URINE NEG (NEG); KETONE, URINE TRACE mg/dL (NEG); NITRITE,URINE NEG (NEG); URINE COLOR YELLOW (YELLW/STRAW); URINE LEUKOCYTE ESTERASE NEG (NEG)
--- NOTE | 2017-11-01 05:40 | RADRPT ---
EXAM DATE: 11/01/2017 5:29 AM EDT AGE/SEX: 82 years / Female INDICATIONS: Chest pain, increased blood pressure starting today CLINICAL DATA: This is the patient's initial encounter. Patient reports that signs and symptoms have been present for 1 day and indicates a pain score of 7/10. MEDICAL/SURGICAL HISTORY: Hypertension. None. COMPARISON: [facility], CHEST SINGLE AP, 02/16/2013. . FINDINGS: A single AP view of the chest demonstrates the lungs to be symmetrically aerated without evidence of mass, infiltrate or effusion. The cardiomediastinal contours are unremarkable. There is a levocurvat ure of the thoracolumbar region. There is an aortic stent graft seen in the abdomen. CONCLUSION: No acute cardiopulmonary process. Electronically signed by: Steve Acosta MD 11/01/2017 5:38 AM EDT
[2017-11-01 05:47] LABS: BACTERIA, URINE MANY /hpf; RBC, URINE 0-3 /hpf (0-3); SQUAMOUS EPITHELIAL CELL URINE 0-5 /hpf (0-5)
[2017-11-01 06:14] VITALS: BP 112/61; PULSE 72; RESP 16; TEMP 98.5; O2SAT 100
[2017-11-01] MEDS ORDERED: SODIUM CHLORID 0.9% 500 ML INJ 500 ML IV ONE (06:30)
[2017-11-01] MEDS ORDERED: POTASSIUM CHLOR 10 MEQ PREMIX 100 ML IV ONE (06:30)
[2017-11-01] MEDS ORDERED: cefTRIAXone INJ 1,000 MG in SODIUM CHLORIDE 0.9% INJ 100 ML IV ONE (06:30)
[2017-11-01] MEDS ORDERED: POTASSIUM CHLORIDE 20 MEQ CONTROLLED RELEASE TAB PO ONE (06:30)
[2017-11-01] MEDS ORDERED: METHADONE HCL 10 MG TAB PO ONE (07:00)
--- NOTE | 2017-11-01 07:05 | EKG ---
Date Performed: 11/01/2017 Time Performed: 04:46:50 PTAGE: 82 years EKG: Sinus rhythm WITH OCCASIONAL SUPRAVENTRICULAR PREMATURE COMPLEXES POSSIBLE LEFT ATRIAL ENLARGEMENT POSSIBLE RIGHT VENTRICULAR CONDUCTION DELAY NONSPECIFIC ST & T-WAVE ABNORMALITY BORDERLINE ECG PREVIOUS TRACING : 07/07/2017 07.12 No significant change from previous tracing noted. DOCTOR: Steven Ruiz Interpretating Date/Time 11/01/2017 07:04:13
[2017-11-01] MEDS ORDERED: POTA1TAB4 PO (07:11)
[2017-11-01] MEDS ORDERED: CEPH-460 PO (07:11)
[2017-11-01 07:22] VITALS: BP 129/80; PULSE 78; RESP 16; O2SAT 96
[2017-11-01 08:35] VITALS: BP 115/75; PULSE 75; RESP 16; O2SAT 96
== END 2017-11-01 08:37 | disposition home or self-care (01) ==
LOC: PHED 04:31
DX: N39.0 Urinary tract infection, site not specified (principal); B96.1 Klebsiella pneumoniae [K. pneumoniae] as the cause of diseases classified elsewhere; E87.6 Hypokalemia; I10 Essential (primary) hypertension; R94.31 Abnormal electrocardiogram [ECG] [EKG]; R00.0 Tachycardia, unspecified; R07.9 Chest pain, unspecified; M54.9 Dorsalgia, unspecified; G89.4 Chronic pain syndrome; I73.9 Peripheral vascular disease, unspecified; K21.9 Gastro-esophageal reflux disease without esophagitis; M19.90 Unspecified osteoarthritis, unspecified site; M79.7 Fibromyalgia; H40.9 Unspecified glaucoma; I71.4 Abdominal aortic aneurysm, without rupture
CPT/HCPCS: 71045; 80053; 81001; 82550; 82552; 83690; 83735; 84484; 85025; 85610; 85730; 87077; 87086; 87186; 93005; 96365; 96368; 99285; J0696; J3480; J7040; P9612